=== PATIENT | male | born 1930 | race Caucasian/White ===

== ENCOUNTER 2017-09-01 10:38 | Inpatient (IN) ==
[2017-09-01] MEDS ORDERED: ACETAMINOPHEN 325 MG TABLET PO PRN (10:42)
[2017-09-01] MEDS ORDERED: ONDANSETRON 4 MG/2 ML VIAL IV PRN (10:42)
[2017-09-01 12:38] LABS: Basophils % 0.3 % (0.0-0.8); Eosinophils # 0.3 10*3/uL (0.0-0.87); Eosinophils % 4.3 % (0.00-10.9); Hematocrit 36.2 VOL% (42.0-52.0); Hemoglobin 11.5 GM/DL (14.0-18.0); Immature Granulocytes % 0.5 %; Immature Granulocytes Absolute 0.03 #; Lymphocytes # 1.5 10*3/uL (1.4-4.0); Lymphocytes % 22.6 % (21.2-54.2); Mean Corpuscular HGB Conc 31.8 GM/DL (32-36); Mean Corpuscular Hemoglobin 32 PG (27-34); Mean Corpuscular Volume 101.7 FL (87-102); Mean Platelet Volume 9.9 FL (9.6-12.0); Monocytes # 0.8 10*3/uL (0.11-0.8); Monocytes % 12.7 % (1.7-12.7); Neutrophils # 3.9 10*3/uL (1.4-7.4); Neutrophils % 59.6 % (38.7-73.9); Platelet Count 177 T/CUMM (130-400); Red Blood Count 3.56 MC/CUMM (3.8-5.5); Red Cell Distribution Width 14.7 % (9.3-17.3); White Blood Count 6.5 T/CUMM (4-12)
[2017-09-01] MEDS: ASPIRIN EC 81 MG TABLET PO SCH (12:51)
[2017-09-01 13:01] LABS: Calcium 8.3 MG/DL (8.5-10.1); Magnesium 2.1 MG/DL (1.8-2.4); Risk Ratio 2.88; VLDL CHOLESTEROL 19.8 MG/DL
[2017-09-01] MEDS: SODIUM CHLORIDE 0.45% 1,000 ML IV SCH (13:27)
[2017-09-01] MEDS ORDERED: GLUCAGON 1 MG VIAL IM PRN (13:28)
[2017-09-01] MEDS ORDERED: DEXTROSE 50% 25 GM/50 ML VIAL IV PRN (13:28)
[2017-09-01] MEDS ORDERED: POTASSIUM CHLORIDE RIDER 10 MEQ in PREMIX 1 EACH IV PRN (14:40)
[2017-09-01] MEDS ORDERED: MAGNESIUM SULF RIDER 2 GM in PREMIX 1 EACH IV PRN (14:40)
[2017-09-01] MEDS: ZALEPLON 5 MG CAPSULE PO PRN (21:55)
[2017-09-01] MEDS: DOCUSATE SODIUM 100 MG CAPSULE PO SCH (21:55)
[2017-09-02] MEDS: SODIUM CHLORIDE 0.45% 1,000 ML IV SCH ×2 (02:31→15:40)
[2017-09-02 04:42] LABS: Basophils % 0.3 % (0.0-0.8); Eosinophils # 0.3 10*3/uL (0.0-0.87); Eosinophils % 4.3 % (0.00-10.9); Hematocrit 33.2 VOL% (42.0-52.0); Hemoglobin 11.1 GM/DL (14.0-18.0); Immature Granulocytes % 0.3 %; Immature Granulocytes Absolute 0.02 #; Lymphocytes # 1.6 10*3/uL (1.4-4.0); Mean Corpuscular HGB Conc 33.4 GM/DL (32-36); Mean Corpuscular Hemoglobin 33 PG (27-34); Mean Corpuscular Volume 98.2 FL (87-102); Mean Platelet Volume 10.4 FL (9.6-12.0); Monocytes # 0.8 10*3/uL (0.11-0.8); Monocytes % 11.2 % (1.7-12.7); Neutrophils # 4.1 10*3/uL (1.4-7.4); Neutrophils % 59.9 % (38.7-73.9); Platelet Count 169 T/CUMM (130-400); Red Blood Count 3.38 MC/CUMM (3.8-5.5); Red Cell Distribution Width 14.6 % (9.3-17.3); White Blood Count 6.8 T/CUMM (4-12)
[2017-09-02 04:53] LABS: PT Patient Result 10.5 SECS
[2017-09-02 05:17] LABS: Calcium 8.5 MG/DL (8.5-10.1); Magnesium 1.9 MG/DL (1.8-2.4); Osmolality,Calculated 285.1 MOS/KG (273-304); Potassium 4.7 MMOL/L (3.5-5.1)
[2017-09-02] MEDS ORDERED: DIAZEPAM 5 MG TABLET PO ONE (07:00)
[2017-09-02] MEDS ORDERED: diphenhydrAMINE CAP 25 MG CAPSULE PO ONE (07:00)
[2017-09-02] MEDS: PANTOPRAZOLE 40 MG TABLET PO SCH (07:59)
[2017-09-02] MEDS: ASPIRIN EC 81 MG TABLET PO SCH (07:59)
[2017-09-02] MEDS: DOCUSATE SODIUM 100 MG CAPSULE PO SCH ×2 (08:03→21:18)
[2017-09-02] MEDS ORDERED: hydrOXYzine HCL 25 MG TABLET PO PRN (08:15)
[2017-09-02] MEDS ORDERED: traMADol 50 MG TABLET PO PRN (08:15)
[2017-09-02] MEDS ORDERED: MIDAZOLAM 2 MG/2 ML VIAL ONE (08:15)
[2017-09-02] MEDS ORDERED: ALBUTEROL 2.5 MG/3 ML NEB RESP TX PRN (08:15)
[2017-09-02] MEDS ORDERED: fentaNYL 100 MCG/2 ML VIAL ONE (08:15)
[2017-09-02] MEDS ORDERED: LIDOCAINE 1% 20 ML VIAL ONE (08:15)
[2017-09-02] MEDS ORDERED: FLUTICASONE 50 MCG NASAL SPRAY 16 GM BOTTLE BOTH NARES PRN (08:15)
[2017-09-02] MEDS ORDERED: CYANOCOBALAMIN 1000 MCG/1 ML VIAL IM SCH (08:30)
[2017-09-02] MEDS: FOLIC ACID 0.4 MG TABLET PO SCH (08:57)
[2017-09-02] MEDS: GABAPENTIN 600 MG TABLET PO SCH (08:57)
[2017-09-02] MEDS: GLUCOSAMINE 500 MG TABLET PO SCH (08:57)
[2017-09-02] MEDS: MULTIVITAMIN (OCUVITE) TABLET PO SCH (08:58)
[2017-09-02] MEDS: LEVOTHYROXINE 175 MCG TABLET PO SCH (08:58)
[2017-09-02] MEDS: MONTELUKAST 10 MG TABLET PO SCH (08:58)
[2017-09-02] MEDS ORDERED: ALPHA LIPOIC ACID 600 MG PO SCH (09:00)
[2017-09-02] MEDS ORDERED: CYANOCOBALAMIN 6000 MCG PO SCH (09:00)
[2017-09-02] MEDS ORDERED: NON-FORMULARY MEDICATION (Liraglutide [Victoza 3-Pak] 1.2 MG) SQ SCH (09:00)
[2017-09-02] MEDS: IPRATROPIUM 500 MCG/2.5 ML NEB RESP TX SCH ×3 (10:28→20:54)
[2017-09-02] MEDS: FORMOTEROL 20 MCG/2 ML NEB RESP TX SCH ×2 (10:28→20:54)
[2017-09-02] MEDS: POLYVINYL ALCOHOL 1.4% OPH SOLN 15 ML BOTTLE BOTH EYES SCH (10:54)
[2017-09-02] MEDS: INSULIN REGULAR 100 UNIT/ML SUBCUT SCH ×3 (12:38→21:36)
[2017-09-02] MEDS ORDERED: SIMVASTATIN 20 MG TABLET PO SCH (21:00)
[2017-09-02] MEDS ORDERED: GABAPENTIN 300 MG CAPSULE PO SCH (21:00)
[2017-09-02] MEDS ORDERED: MELATONIN 3 MG TABLET PO SCH (21:00)
[2017-09-02] MEDS ORDERED: TEMAZEPAM 7.5 MG CAPSULE PO SCH (21:00)
[2017-09-02] MEDS: ZALEPLON 5 MG CAPSULE PO PRN (21:17)
[2017-09-03 06:06] LABS: Basophils % 0.3 % (0.0-0.8); Eosinophils # 0.3 10*3/uL (0.0-0.87); Eosinophils % 4.6 % (0.00-10.9); Hematocrit 34.7 VOL% (42.0-52.0); Hemoglobin 11.3 GM/DL (14.0-18.0); Immature Granulocytes % 0.4 %; Immature Granulocytes Absolute 0.03 #; Lymphocytes # 1.3 10*3/uL (1.4-4.0); Lymphocytes % 17.2 % (21.2-54.2); Mean Corpuscular HGB Conc 32.6 GM/DL (32-36); Mean Corpuscular Hemoglobin 33 PG (27-34); Mean Platelet Volume 9.7 FL (9.6-12.0); Monocytes % 13.2 % (1.7-12.7); Neutrophils # 4.7 10*3/uL (1.4-7.4); Neutrophils % 64.3 % (38.7-73.9); Platelet Count 159 T/CUMM (130-400); Red Blood Count 3.47 MC/CUMM (3.8-5.5); Red Cell Distribution Width 14.4 % (9.3-17.3); White Blood Count 7.3 T/CUMM (4-12)
[2017-09-03 06:36] LABS: Calcium 8.7 MG/DL (8.5-10.1); Osmolality,Calculated 284.3 MOS/KG (273-304); Potassium 4.4 MMOL/L (3.5-5.1)
[2017-09-03] MEDS: IPRATROPIUM 500 MCG/2.5 ML NEB RESP TX SCH ×2 (07:34→10:56)
[2017-09-03] MEDS: FORMOTEROL 20 MCG/2 ML NEB RESP TX SCH (07:34)
[2017-09-03] MEDS: POLYVINYL ALCOHOL 1.4% OPH SOLN 15 ML BOTTLE BOTH EYES SCH (08:41)
[2017-09-03] MEDS: MULTIVITAMIN (OCUVITE) TABLET PO SCH (08:41)
[2017-09-03] MEDS: PANTOPRAZOLE 40 MG TABLET PO SCH (08:41)
[2017-09-03] MEDS: GABAPENTIN 600 MG TABLET PO SCH (08:41)
[2017-09-03] MEDS: INSULIN REGULAR 100 UNIT/ML SUBCUT SCH (08:41)
[2017-09-03] MEDS: GLUCOSAMINE 500 MG TABLET PO SCH (08:42)
[2017-09-03] MEDS: LEVOTHYROXINE 175 MCG TABLET PO SCH (08:42)
[2017-09-03] MEDS: DOCUSATE SODIUM 100 MG CAPSULE PO SCH (08:42)
[2017-09-03] MEDS: MONTELUKAST 10 MG TABLET PO SCH (08:42)
[2017-09-03] MEDS: FOLIC ACID 0.4 MG TABLET PO SCH (08:42)
[2017-09-03] MEDS: ASPIRIN EC 81 MG TABLET PO SCH (08:42)
[2017-09-03 08:45] VITALS: BP 141/81
[2017-09-03] MEDS ORDERED: NITROGLYCERIN SL 0.4 MG TABLET SL PRN (09:04)
== END 2017-09-03 11:57 | disposition home or self-care (01) | DRG 287 ==
LOC: N.TELES 11:12
PROVIDERS: ADMIT Internal Medicine Cardiovascular Disease; ATTEND Internal Medicine Cardiovascular Disease

== ENCOUNTER 2018-09-09 18:00 | Inpatient (IN) ==
[2018-09-09 19:41] LABS: Basophils % 0.4 % (0.0-0.8); Eosinophils # 0.1 10*3/uL (0.0-0.87); Eosinophils % 2.1 % (0.00-10.9); Hematocrit 37.4 VOL% (42.0-52.0); Hemoglobin 12.3 GM/DL (14.0-18.0); Immature Granulocytes % 0.5 %; Immature Granulocytes Absolute 0.03 #; Lymphocytes # 1.2 10*3/uL (1.4-4.0); Lymphocytes % 21.4 % (21.2-54.2); Mean Corpuscular HGB Conc 32.9 GM/DL (32-36); Mean Corpuscular Hemoglobin 34 PG (27-34); Mean Corpuscular Volume 103.3 FL (87-102); Mean Platelet Volume 9.7 FL (9.6-12.0); Monocytes # 0.7 10*3/uL (0.11-0.8); Monocytes % 12.5 % (1.7-12.7); Neutrophils # 3.6 10*3/uL (1.4-7.4); Neutrophils % 63.1 % (38.7-73.9); Platelet Count 191 T/CUMM (130-400); Red Blood Count 3.62 MC/CUMM (3.8-5.5); Red Cell Distribution Width 13.3 % (9.3-17.3); White Blood Count 5.7 T/CUMM (4-12)
[2018-09-09 19:59] LABS: Alanine Aminotransferase 12 U/L (16-61); Albumin 3.1 G/DL (3.4-5.0); Alkaline Phosphatase 97 U/L (45-117); Aspartate Amino Transferase 14 U/L (0-37); Bilirubin,Total < 0.39 MG/DL (0.2-1.0); Blood Urea Nitrogen 28 MG/DL (7-18); Glucose 97 MG/DL (74-106); Osmolality,Calculated 282.5 MOS/KG (273-304); Potassium 4.6 MMOL/L (3.5-5.1); Sodium 139 MMOL/L (136-145); Total Protein 6.7 G/DL (6.4-8.3)
[2018-09-09 20:55] LABS: Apearance,Urine CLEAR (Clear); Bilirubin,Urine Negative (Negative); Blood, Urine Negative (Negative); Glucose,Urine (UA) Negative (Negative); Hyaline Casts,Urine 1 /LPF (0-3); Ketones,Urine Negative (Negative); Mucus,Urine Occasional /LPF (Occasional); Nitrite,Urine Negative (Negative); Protein,Urine Negative; RBC,Urine <1 /HPF (0-4); Urine Color Yellow (Yellow); Urine Specific Gravity 1.011 (1.001-1.035); WBC,Urine 1 /HPF (0-6)
[2018-09-10] MEDS ORDERED: traMADol 50 MG TABLET PO PRN (07:30)
[2018-09-10] MEDS ORDERED: NITROGLYCERIN SL 0.4 MG TABLET SL PRN (07:30)
[2018-09-10] MEDS ORDERED: hydrOXYzine HCL 25 MG TABLET PO PRN (07:30)
[2018-09-10] MEDS ORDERED: TEMAZEPAM 7.5 MG CAPSULE PO PRN (07:30)
[2018-09-10] MEDS ORDERED: FLUTICASONE 50 MCG NASAL SPRAY 16 GM BOTTLE BOTH NARES PRN (07:30)
[2018-09-10] MEDS: RANOLAZINE 500 MG TABLET PO SCH ×2 (08:48→22:21)
[2018-09-10] MEDS: FUROSEMIDE 20 MG TABLET PO SCH (08:48)
[2018-09-10] MEDS: MONTELUKAST 10 MG TABLET PO SCH (08:48)
[2018-09-10] MEDS: MULTIVITAMIN (OCUVITE) TABLET PO SCH (08:48)
[2018-09-10] MEDS: LEVOTHYROXINE 175 MCG TABLET PO SCH (08:48)
[2018-09-10] MEDS: GABAPENTIN 300 MG CAPSULE PO SCH ×3 (08:48→22:21)
[2018-09-10] MEDS: ISOSORBIDE MONONITRATE 30 MG TABLET PO SCH (08:48)
[2018-09-10] MEDS ORDERED: CYANOCOBALAMIN 6000 MCG PO SCH (09:00)
[2018-09-10] MEDS ORDERED: [UNRECOGNIZED DRUG - OTHER] PO SCH (09:00)
[2018-09-10] MEDS ORDERED: MANG PO SCH (09:00)
[2018-09-10] MEDS ORDERED: CHONDROITIN PO SCH (09:00)
[2018-09-10] MEDS ORDERED: GLUCOSAMINE PO SCH (09:00)
[2018-09-10] MEDS ORDERED: Formoterol Fumarate [Perforomist] 20 MCG INH SCH (09:00)
[2018-09-10] MEDS ORDERED: ASPIRIN EC 325 MG TABLET PO SCH (09:00)
[2018-09-10] MEDS: IPRATROPIUM 500 MCG/2.5 ML NEB RESP TX SCH ×4 (09:23→19:46)
[2018-09-10] MEDS ORDERED: Alpha Lipoic Acid [Alpha Lipoic Acid] 600 MG PO SCH (21:00)
[2018-09-10] MEDS ORDERED: FOLIC ACID 0.4 MG TABLET PO SCH (21:00)
[2018-09-10] MEDS ORDERED: SIMVASTATIN 20 MG TABLET PO SCH (21:00)
[2018-09-11 05:28] LABS: Basophils % 0.3 % (0.0-0.8); Eosinophils # 0.2 10*3/uL (0.0-0.87); Eosinophils % 3.3 % (0.00-10.9); Hemoglobin 11.3 GM/DL (14.0-18.0); Immature Granulocytes % 0.3 %; Immature Granulocytes Absolute 0.02 #; Lymphocytes # 1.8 10*3/uL (1.4-4.0); Lymphocytes % 29.7 % (21.2-54.2); Mean Corpuscular HGB Conc 32.3 GM/DL (32-36); Mean Corpuscular Hemoglobin 34 PG (27-34); Mean Corpuscular Volume 103.9 FL (87-102); Mean Platelet Volume 9.7 FL (9.6-12.0); Monocytes # 0.8 10*3/uL (0.11-0.8); Monocytes % 13.6 % (1.7-12.7); Neutrophils # 3.2 10*3/uL (1.4-7.4); Neutrophils % 52.8 % (38.7-73.9); Platelet Count 166 T/CUMM (130-400); Red Blood Count 3.37 MC/CUMM (3.8-5.5); Red Cell Distribution Width 13.4 % (9.3-17.3); White Blood Count 6.1 T/CUMM (4-12)
[2018-09-11] MEDS ORDERED: CYANOCOBALAMIN 1000 MCG/1 ML VIAL IM SCH (05:30)
[2018-09-11 05:45] LABS: Calcium 8.7 MG/DL (8.5-10.1); Osmolality,Calculated 284.3 MOS/KG (273-304); Potassium 4.3 MMOL/L (3.5-5.1)
[2018-09-11] MEDS: IPRATROPIUM 500 MCG/2.5 ML NEB RESP TX SCH (07:50)
[2018-09-11 07:52] VITALS: BP 118/60
[2018-09-11] MEDS: MONTELUKAST 10 MG TABLET PO SCH (08:45)
[2018-09-11] MEDS: ISOSORBIDE MONONITRATE 30 MG TABLET PO SCH (08:46)
[2018-09-11] MEDS: MULTIVITAMIN (OCUVITE) TABLET PO SCH (08:46)
[2018-09-11] MEDS: FUROSEMIDE 20 MG TABLET PO SCH (08:46)
[2018-09-11] MEDS: RANOLAZINE 500 MG TABLET PO SCH (08:46)
[2018-09-11] MEDS: LEVOTHYROXINE 175 MCG TABLET PO SCH (08:46)
[2018-09-11] MEDS: GABAPENTIN 300 MG CAPSULE PO SCH (08:46)
[2018-09-11] MEDS ORDERED: ASPIRIN EC 81 MG TABLET PO SCH (09:00)
[2018-09-11] MEDS ORDERED: IPRATROPIUM 500 MCG/2.5 ML NEB RESP TX SCH (11:00)
== END 2018-09-11 11:25 | disposition home or self-care (01) | DRG 312 ==
LOC: N.ED 18:00 → N.EDINP 20:22 → N.TELES 21:14
PROVIDERS: ADMIT Family Medicine; ATTEND Family Medicine

== ENCOUNTER 2018-09-15 08:58 | Inpatient (IN) ==
[2018-09-15] MEDS ORDERED: ASPIRIN 325 MG TABLET PO STA (10:41)
[2018-09-15] MEDS ORDERED: SODIUM CHLORIDE 0.9% 500 ML IV STA (10:41)
[2018-09-15] MEDS ORDERED: ONDANSETRON 4 MG/2 ML VIAL IV STA (10:41)
[2018-09-15 10:46] LABS: Basophils % 0.1 % (0.0-0.8); Eosinophils # 0.1 10*3/uL (0.0-0.87); Eosinophils % 0.7 % (0.00-10.9); Hematocrit 38.7 VOL% (42.0-52.0); Hemoglobin 12.5 GM/DL (14.0-18.0); Immature Granulocytes % 0.5 %; Immature Granulocytes Absolute 0.07 #; Lymphocytes # 0.9 10*3/uL (1.4-4.0); Lymphocytes % 6.5 % (21.2-54.2); Mean Corpuscular HGB Conc 32.3 GM/DL (32-36); Mean Corpuscular Hemoglobin 34 PG (27-34); Mean Platelet Volume 9.4 FL (9.6-12.0); Monocytes # 1.5 10*3/uL (0.11-0.8); Monocytes % 11.3 % (1.7-12.7); Neutrophils # 10.8 10*3/uL (1.4-7.4); Neutrophils % 80.9 % (38.7-73.9); Platelet Count 171 T/CUMM (130-400); Red Blood Count 3.72 MC/CUMM (3.8-5.5); Red Cell Distribution Width 13.2 % (9.3-17.3); White Blood Count 13.4 T/CUMM (4-12)
[2018-09-15 11:08] LABS: Albumin 3.3 G/DL (3.4-5.0); Bilirubin,Total 0.7 MG/DL (0.2-1.0); Calcium 9.4 MG/DL (8.5-10.1); Osmolality,Calculated 284.4 MOS/KG (273-304); Potassium 4.8 MMOL/L (3.5-5.1); Total Protein 6.4 G/DL (6.4-8.3)
[2018-09-15] MEDS ORDERED: ACETAMINOPHEN 325 MG TABLET PO PRN (12:11)
[2018-09-15] MEDS ORDERED: ONDANSETRON 4 MG/2 ML VIAL IV PRN (12:11)
[2018-09-15] MEDS ORDERED: hydrOXYzine HCL 25 MG TABLET PO PRN (13:06)
[2018-09-15] MEDS ORDERED: [UNRECOGNIZED DRUG - REMARK] INH PRN (13:06)
[2018-09-15] MEDS ORDERED: NITROGLYCERIN SL 0.4 MG TABLET SL PRN (13:06)
[2018-09-15] MEDS ORDERED: traMADol 50 MG TABLET PO PRN (13:06)
[2018-09-15] MEDS: GABAPENTIN 300 MG CAPSULE PO SCH ×2 (16:22→22:41)
[2018-09-15] MEDS ORDERED: GLUCAGON 1 MG VIAL IM PRN (17:10)
[2018-09-15] MEDS ORDERED: DEXTROSE 50% 25 GM/50 ML SYRINGE IV PRN (17:10)
[2018-09-15] MEDS: cefTRIAXone 1,000 MG in SYRINGE 1 EACH IV SCH (18:47)
[2018-09-15] MEDS: AZITHROMYCIN INJ 500 MG in SODIUM CHLORIDE 0.9% 250 ML IV SCH (18:49)
[2018-09-15] MEDS: FORMOTEROL 20 MCG/2 ML NEB RESP TX SCH (19:50)
[2018-09-15] MEDS ORDERED: ALPHA LIPOIC ACID 600 MG PO SCH (21:00)
[2018-09-15] MEDS ORDERED: RANOLAZINE 500 MG TABLET PO SCH (21:00)
[2018-09-15] MEDS: RANOLAZINE 500 MG TABLET PO SCH (22:40)
[2018-09-15] MEDS: FOLIC ACID 0.4 MG TABLET PO SCH (22:40)
[2018-09-15] MEDS: SIMVASTATIN 20 MG TABLET PO SCH (22:41)
[2018-09-15] MEDS: INSULIN LISPRO 100 UNIT/ML SUBCUT SCH (22:41)
[2018-09-15] MEDS: DOCUSATE SODIUM 100 MG CAPSULE PO SCH (22:41)
[2018-09-15] MEDS: TEMAZEPAM 7.5 MG CAPSULE PO PRN (22:44)
[2018-09-16] MEDS: IPRATROPIUM 500 MCG/2.5 ML NEB RESP TX SCH ×4 (07:01→20:00)
[2018-09-16] MEDS: FORMOTEROL 20 MCG/2 ML NEB RESP TX SCH ×2 (07:01→20:00)
[2018-09-16] MEDS ORDERED: CYANOCOBALAMIN 6000 MCG PO SCH (09:00)
[2018-09-16] MEDS ORDERED: CRAMP DEFENSE PO SCH (09:00)
[2018-09-16] MEDS: INSULIN LISPRO 100 UNIT/ML SUBCUT SCH ×4 (09:18→21:49)
[2018-09-16] MEDS: RANOLAZINE 500 MG TABLET PO SCH ×2 (09:19→21:48)
[2018-09-16] MEDS: MULTIVITAMIN (OCUVITE) TABLET PO SCH (09:19)
[2018-09-16] MEDS: ISOSORBIDE MONONITRATE 30 MG TABLET PO SCH (09:20)
[2018-09-16] MEDS: DOCUSATE SODIUM 100 MG CAPSULE PO SCH ×2 (09:20→21:48)
[2018-09-16] MEDS: MONTELUKAST 10 MG TABLET PO SCH (09:20)
[2018-09-16] MEDS: ASPIRIN EC 81 MG TABLET PO SCH (09:20)
[2018-09-16] MEDS: PANTOPRAZOLE 40 MG TABLET PO SCH (09:20)
[2018-09-16] MEDS: GABAPENTIN 300 MG CAPSULE PO SCH ×3 (09:20→21:49)
[2018-09-16] MEDS: LEVOTHYROXINE 175 MCG TABLET PO SCH (09:21)
[2018-09-16] MEDS: GLUCOSAMINE 500 MG TABLET PO SCH (09:21)
[2018-09-16] MEDS ORDERED: FUROSEMIDE 20 MG TABLET PO SCH (13:06)
[2018-09-16] MEDS: AZITHROMYCIN INJ 500 MG in SODIUM CHLORIDE 0.9% 250 ML IV SCH (17:27)
[2018-09-16] MEDS: cefTRIAXone 1,000 MG in SYRINGE 1 EACH IV SCH (17:28)
[2018-09-16] MEDS: TEMAZEPAM 7.5 MG CAPSULE PO PRN (21:49)
[2018-09-16] MEDS: FOLIC ACID 0.4 MG TABLET PO SCH (21:49)
[2018-09-16] MEDS: SIMVASTATIN 20 MG TABLET PO SCH (21:49)
[2018-09-17 05:53] LABS: Basophils % 0.1 % (0.0-0.8); Eosinophils # 0.2 10*3/uL (0.0-0.87); Eosinophils % 3.1 % (0.00-10.9); Hematocrit 29.6 VOL% (42.0-52.0); Immature Granulocytes % 0.4 %; Immature Granulocytes Absolute 0.03 #; Lymphocytes # 1.3 10*3/uL (1.4-4.0); Lymphocytes % 19.5 % (21.2-54.2); Mean Corpuscular HGB Conc 32.8 GM/DL (32-36); Mean Corpuscular Hemoglobin 34 PG (27-34); Mean Corpuscular Volume 102.8 FL (87-102); Mean Platelet Volume 9.7 FL (9.6-12.0); Monocytes # 0.8 10*3/uL (0.11-0.8); Monocytes % 12.1 % (1.7-12.7); Neutrophils # 4.3 10*3/uL (1.4-7.4); Neutrophils % 64.8 % (38.7-73.9); Platelet Count 138 T/CUMM (130-400); Red Cell Distribution Width 13.2 % (9.3-17.3)
[2018-09-17 05:58] LABS: Calcium 8.7 MG/DL (8.5-10.1); Osmolality,Calculated 283.5 MOS/KG (273-304); Potassium 4.2 MMOL/L (3.5-5.1)
[2018-09-17 06:01] LABS: Hemoglobin 9.7 GM/DL (14.0-18.0); Red Blood Count 2.88 MC/CUMM (3.8-5.5); White Blood Count 6.7 T/CUMM (4-12)
[2018-09-17] MEDS: IPRATROPIUM 500 MCG/2.5 ML NEB RESP TX SCH ×4 (07:15→19:42)
[2018-09-17] MEDS: FORMOTEROL 20 MCG/2 ML NEB RESP TX SCH ×2 (07:15→19:50)
[2018-09-17] MEDS: INSULIN LISPRO 100 UNIT/ML SUBCUT SCH ×4 (08:25→21:00)
[2018-09-17] MEDS: LEVOTHYROXINE 175 MCG TABLET PO SCH (10:03)
[2018-09-17] MEDS: RANOLAZINE 500 MG TABLET PO SCH ×2 (10:03→20:33)
[2018-09-17] MEDS: MONTELUKAST 10 MG TABLET PO SCH (10:03)
[2018-09-17] MEDS: ASPIRIN EC 81 MG TABLET PO SCH (10:03)
[2018-09-17] MEDS: GABAPENTIN 300 MG CAPSULE PO SCH ×3 (10:03→20:33)
[2018-09-17] MEDS: MULTIVITAMIN (OCUVITE) TABLET PO SCH (10:03)
[2018-09-17] MEDS: PANTOPRAZOLE 40 MG TABLET PO SCH (10:04)
[2018-09-17] MEDS: GLUCOSAMINE 500 MG TABLET PO SCH (10:04)
[2018-09-17] MEDS: ISOSORBIDE MONONITRATE 30 MG TABLET PO SCH (10:04)
[2018-09-17] MEDS: DOCUSATE SODIUM 100 MG CAPSULE PO SCH ×2 (10:04→20:33)
[2018-09-17] MEDS: AZITHROMYCIN INJ 500 MG in SODIUM CHLORIDE 0.9% 250 ML IV SCH (16:52)
[2018-09-17] MEDS: cefTRIAXone 1,000 MG in SYRINGE 1 EACH IV SCH (16:53)
[2018-09-17] MEDS: FOLIC ACID 0.4 MG TABLET PO SCH (20:33)
[2018-09-17] MEDS: TEMAZEPAM 7.5 MG CAPSULE PO PRN (20:33)
[2018-09-17] MEDS: SIMVASTATIN 20 MG TABLET PO SCH (20:34)
[2018-09-18 04:37] LABS: Basophils % 0.2 % (0.0-0.8); Eosinophils # 0.2 10*3/uL (0.0-0.87); Eosinophils % 3.6 % (0.00-10.9); Hematocrit 31.6 VOL% (42.0-52.0); Hemoglobin 10.2 GM/DL (14.0-18.0); Immature Granulocytes % 0.3 %; Immature Granulocytes Absolute 0.02 #; Lymphocytes # 1.5 10*3/uL (1.4-4.0); Lymphocytes % 23.4 % (21.2-54.2); Mean Corpuscular HGB Conc 32.3 GM/DL (32-36); Mean Corpuscular Hemoglobin 33 PG (27-34); Mean Corpuscular Volume 103.3 FL (87-102); Mean Platelet Volume 9.7 FL (9.6-12.0); Monocytes # 0.7 10*3/uL (0.11-0.8); Monocytes % 11.3 % (1.7-12.7); Neutrophils # 3.9 10*3/uL (1.4-7.4); Neutrophils % 61.2 % (38.7-73.9); Platelet Count 139 T/CUMM (130-400); Red Blood Count 3.06 MC/CUMM (3.8-5.5); Red Cell Distribution Width 13.2 % (9.3-17.3); White Blood Count 6.4 T/CUMM (4-12)
[2018-09-18 04:50] LABS: Calcium 8.6 MG/DL (8.5-10.1); Osmolality,Calculated 281.5 MOS/KG (273-304); Potassium 4.5 MMOL/L (3.5-5.1)
[2018-09-18] MEDS: IPRATROPIUM 500 MCG/2.5 ML NEB RESP TX SCH (07:05)
[2018-09-18] MEDS: FORMOTEROL 20 MCG/2 ML NEB RESP TX SCH (07:05)
[2018-09-18 08:10] VITALS: BP 130/54
[2018-09-18] MEDS: INSULIN LISPRO 100 UNIT/ML SUBCUT SCH (09:06)
[2018-09-18] MEDS: GLUCOSAMINE 500 MG TABLET PO SCH (09:15)
[2018-09-18] MEDS: MONTELUKAST 10 MG TABLET PO SCH (09:15)
[2018-09-18] MEDS: DOCUSATE SODIUM 100 MG CAPSULE PO SCH (09:15)
[2018-09-18] MEDS: ISOSORBIDE MONONITRATE 30 MG TABLET PO SCH (09:16)
[2018-09-18] MEDS: MULTIVITAMIN (OCUVITE) TABLET PO SCH (09:16)
[2018-09-18] MEDS: LEVOTHYROXINE 175 MCG TABLET PO SCH (09:16)
[2018-09-18] MEDS: ASPIRIN EC 81 MG TABLET PO SCH (09:16)
[2018-09-18] MEDS: RANOLAZINE 500 MG TABLET PO SCH (09:16)
[2018-09-18] MEDS: PANTOPRAZOLE 40 MG TABLET PO SCH (09:16)
[2018-09-18] MEDS: GABAPENTIN 300 MG CAPSULE PO SCH (09:16)
[2018-09-21] MEDS ORDERED: NON-FORMULARY MEDICATION (Exenatide Microspheres [Bydureon Pen] 2 MG) SUBCUT SCH (09:00)
== END 2018-09-18 11:40 | disposition home or self-care (01) | DRG 195 ==
LOC: N.EDINP 08:58 → N.ED 08:58 → N.TELES 12:51
PROVIDERS: ADMIT Family Medicine; ATTEND Family Medicine

== ENCOUNTER 2020-01-17 17:50 | Inpatient (IN) ==
[2020-01-17] MEDS ORDERED: PANTOPRAZOLE 40 MG VIAL IV STA (18:29)
[2020-01-17] MEDS ORDERED: ONDANSETRON 4 MG/2 ML VIAL IV STA (18:29)
[2020-01-17] MEDS ORDERED: MORPHINE 4 MG/1 ML VIAL IV STA ×2 (18:29→20:19)
[2020-01-17] MEDS ORDERED: SODIUM CHLORIDE 0.9% 500 ML IV STA (18:29)
[2020-01-17 19:04] LABS: Basophils % 0.3 % (0.0-0.8); Eosinophils # 0.2 10*3/uL (0.0-0.87); Eosinophils % 2.4 % (0.00-10.9); Hematocrit 38.6 VOL% (42.0-52.0); Hemoglobin 12.7 GM/DL (14.0-18.0); Immature Granulocytes % 0.5 %; Immature Granulocytes Absolute 0.04 #; Lymphocytes # 2.1 10*3/uL (1.4-4.0); Lymphocytes % 25.9 % (21.2-54.2); Mean Corpuscular HGB Conc 32.9 GM/DL (32-36); Mean Corpuscular Volume 99.5 FL (87-102); Mean Platelet Volume 10.2 FL (9.6-12.0); Monocytes % 9.2 % (1.7-12.7); Neutrophils % 61.7 % (38.7-73.9); Platelet Count 140 T/CUMM (130-400); Red Blood Count 3.88 MC/CUMM (3.8-5.5); Red Cell Distribution Width 13.8 % (9.3-17.3); White Blood Count 7.9 T/CUMM (4-12)
[2020-01-17 20:05] LABS: Albumin 2.9 G/DL (3.4-5.0); Bilirubin,Total 0.5 MG/DL (0.2-1.0); Calcium 9.1 MG/DL (8.5-10.1); Osmolality,Calculated 275.8 MOS/KG (273-304); Total Protein 6.4 G/DL (6.4-8.3)
[2020-01-17] MEDS ORDERED: PIPERACILLIN/TAZOBACTAM 3,375 MG in SODIUM CHLORIDE 0.9% 100 ML IV STA (20:40)
[2020-01-17 20:43] LABS: Apearance,Urine CLEAR (Clear); Bacteria,Urine Occasional /HPF (Few); Bilirubin,Urine Negative (Negative); Blood, Urine Negative (Negative); Glucose,Urine (UA) Negative (Negative); Ketones,Urine Negative (Negative); Nitrite,Urine Negative (Negative); Protein,Urine Negative; RBC,Urine <1 /HPF (0-4); Urine Color Yellow (Yellow); Urine Specific Gravity 1.009 (1.001-1.035); Urine Urobilinogen < 2.0 EU/DL (0.2-1.0); WBC,Urine 1 /HPF (0-6)
[2020-01-18] MEDS ORDERED: NITROGLYCERIN SL 0.4 MG TABLET SL PRN (01:22)
[2020-01-18] MEDS ORDERED: ACETAMINOPHEN 325 MG TABLET PO PRN (01:22)
[2020-01-18] MEDS ORDERED: [UNRECOGNIZED DRUG - REMARK] INH PRN (01:22)
[2020-01-18] MEDS ORDERED: hydrOXYzine HCL 25 MG TABLET PO PRN (01:22)
[2020-01-18] MEDS ORDERED: TEMAZEPAM 7.5 MG CAPSULE PO PRN (01:22)
[2020-01-18] MEDS: MORPHINE 4 MG/1 ML VIAL IV PRN ×4 (01:50→21:29)
[2020-01-18] MEDS: ONDANSETRON 4 MG/2 ML VIAL IV PRN ×3 (01:56→21:28)
[2020-01-18] MEDS ORDERED: EXENATIDE MICROSPHERES 2 MG SUBCUT SCH (02:00)
[2020-01-18] MEDS: SODIUM CHLORIDE 0.9% 1,000 ML IV SCH (03:20)
[2020-01-18] MEDS: PIPERACILLIN/TAZOBACTAM 3,375 MG in SODIUM CHLORIDE 0.9% 100 ML IV SCH ×3 (05:23→21:28)
[2020-01-18 05:34] LABS: Basophils % 0.1 % (0.0-0.8); Eosinophils # 0.1 10*3/uL (0.0-0.87); Eosinophils % 0.5 % (0.00-10.9); Hematocrit 38.1 VOL% (42.0-52.0); Hemoglobin 12.4 GM/DL (14.0-18.0); Immature Granulocytes % 0.2 %; Immature Granulocytes Absolute 0.02 #; Lymphocytes # 0.7 10*3/uL (1.4-4.0); Lymphocytes % 6.7 % (21.2-54.2); Mean Corpuscular HGB Conc 32.5 GM/DL (32-36); Mean Corpuscular Volume 101.3 FL (87-102); Mean Platelet Volume 9.5 FL (9.6-12.0); Monocytes % 8.1 % (1.7-12.7); Neutrophils % 84.4 % (38.7-73.9); Platelet Count 175 T/CUMM (130-400); Red Blood Count 3.76 MC/CUMM (3.8-5.5); Red Cell Distribution Width 13.9 % (9.3-17.3); White Blood Count 10.5 T/CUMM (4-12)
[2020-01-18] MEDS: LEVOTHYROXINE 150 MCG TABLET PO SCH (05:38)
[2020-01-18 07:41] LABS: Bilirubin,Total 0.7 MG/DL (0.2-1.0); Calcium 9.2 MG/DL (8.5-10.1); Total Protein 6.8 G/DL (6.4-8.3)
[2020-01-18 07:50] LABS: Osmolality,Calculated 279.7 MOS/KG (273-304)
[2020-01-18] MEDS: ASPIRIN EC 325 MG TABLET PO SCH (09:53)
[2020-01-18] MEDS: GLUCOSAM SU DIP CHONDROIT C MN PO SCH (09:54)
[2020-01-18] MEDS: GABAPENTIN 300 MG CAPSULE PO SCH ×3 (09:54→21:30)
[2020-01-18] MEDS: ISOSORBIDE MONONITRATE 30 MG TABLET PO SCH (09:54)
[2020-01-18] MEDS: CYANOCOBALAMIN 6000 MCG PO SCH (09:54)
[2020-01-18] MEDS: MONTELUKAST 10 MG TABLET PO SCH (09:55)
[2020-01-18] MEDS: PANTOPRAZOLE 40 MG VIAL IV SCH (10:02)
[2020-01-18] MEDS: TIOTROPIUM BROMIDE 18 MCG INH SCH (10:04)
[2020-01-18 10:17] LABS: Calcium 9.1 MG/DL (8.5-10.1); Osmolality,Calculated 275.1 MOS/KG (273-304)
[2020-01-18] MEDS: FOLIC ACID 0.4 MG TABLET PO SCH (21:30)
[2020-01-18] MEDS: SIMVASTATIN 20 MG TABLET PO SCH (21:30)
[2020-01-18] MEDS: ALPHA LIPOIC ACID 600 MG PO SCH (21:30)
[2020-01-19] MEDS: SODIUM CHLORIDE 0.9% 1,000 ML IV SCH ×3 (03:02→12:25)
[2020-01-19 05:44] LABS: Basophils % 0.2 % (0.0-0.8); Eosinophils # 0.1 10*3/uL (0.0-0.87); Eosinophils % 1.1 % (0.00-10.9); Hematocrit 42.2 VOL% (42.0-52.0); Hemoglobin 13.2 GM/DL (14.0-18.0); Immature Granulocytes % 0.4 %; Immature Granulocytes Absolute 0.04 #; Lymphocytes # 1.3 10*3/uL (1.4-4.0); Lymphocytes % 13.2 % (21.2-54.2); Mean Corpuscular HGB Conc 31.3 GM/DL (32-36); Mean Corpuscular Volume 105.5 FL (87-102); Mean Platelet Volume 9.3 FL (9.6-12.0); Monocytes % 10.5 % (1.7-12.7); Neutrophils % 74.6 % (38.7-73.9); Platelet Count 191 T/CUMM (130-400); Red Cell Distribution Width 14.2 % (9.3-17.3); White Blood Count 10.1 T/CUMM (4-12)
[2020-01-19 05:56] LABS: Calcium 9.5 MG/DL (8.5-10.1); Osmolality,Calculated 289.3 MOS/KG (273-304)
[2020-01-19] MEDS: PIPERACILLIN/TAZOBACTAM 3,375 MG in SODIUM CHLORIDE 0.9% 100 ML IV SCH ×3 (05:58→20:34)
[2020-01-19] MEDS: LEVOTHYROXINE 150 MCG TABLET PO SCH (05:58)
[2020-01-19] MEDS ORDERED: LACTATED RINGERS 1,000 ML IV ONE (06:39)
[2020-01-19] MEDS: ASPIRIN EC 325 MG TABLET PO SCH (09:54)
[2020-01-19] MEDS: MONTELUKAST 10 MG TABLET PO SCH (09:55)
[2020-01-19] MEDS: GABAPENTIN 300 MG CAPSULE PO SCH ×3 (09:55→20:37)
[2020-01-19] MEDS: GLUCOSAM SU DIP CHONDROIT C MN PO SCH (09:55)
[2020-01-19] MEDS: ISOSORBIDE MONONITRATE 30 MG TABLET PO SCH (09:55)
[2020-01-19] MEDS: CYANOCOBALAMIN 6000 MCG PO SCH (09:55)
[2020-01-19] MEDS: TIOTROPIUM BROMIDE 18 MCG INH SCH (11:04)
[2020-01-19] MEDS: LACTATED RINGERS 1,000 ML IV SCH ×2 (11:04→18:34)
[2020-01-19] MEDS: ENOXAPARIN 40 MG/0.4 ML SYRINGE SUBCUT SCH (11:04)
[2020-01-19] MEDS: PANTOPRAZOLE 40 MG VIAL IV SCH (11:04)
[2020-01-19] MEDS: FOLIC ACID 0.4 MG TABLET PO SCH (20:34)
[2020-01-19] MEDS: ALPHA LIPOIC ACID 600 MG PO SCH (20:34)
[2020-01-19] MEDS: SIMVASTATIN 20 MG TABLET PO SCH (20:35)
[2020-01-19] MEDS: MORPHINE 4 MG/1 ML VIAL IV PRN (23:11)
[2020-01-19] MEDS: ONDANSETRON 4 MG/2 ML VIAL IV PRN (23:11)
[2020-01-20] MEDS: LACTATED RINGERS 1,000 ML IV SCH ×3 (03:10→10:08)
[2020-01-20] MEDS: PIPERACILLIN/TAZOBACTAM 3,375 MG in SODIUM CHLORIDE 0.9% 100 ML IV SCH (05:56)
[2020-01-20] MEDS: LEVOTHYROXINE 150 MCG TABLET PO SCH (05:56)
[2020-01-20 06:50] LABS: Calcium 9.1 MG/DL (8.5-10.1)
[2020-01-20] MEDS: ENOXAPARIN 40 MG/0.4 ML SYRINGE SUBCUT SCH (10:05)
[2020-01-20] MEDS: ISOSORBIDE MONONITRATE 30 MG TABLET PO SCH (10:06)
[2020-01-20] MEDS: MONTELUKAST 10 MG TABLET PO SCH (10:06)
[2020-01-20] MEDS: PANTOPRAZOLE 40 MG VIAL IV SCH (10:06)
[2020-01-20] MEDS: GABAPENTIN 300 MG CAPSULE PO SCH ×3 (10:06→21:03)
[2020-01-20] MEDS: GLUCOSAM SU DIP CHONDROIT C MN PO SCH (10:07)
[2020-01-20] MEDS: CYANOCOBALAMIN 6000 MCG PO SCH (10:07)
[2020-01-20] MEDS: ASPIRIN EC 325 MG TABLET PO SCH (10:11)
[2020-01-20] MEDS: TIOTROPIUM BROMIDE 18 MCG INH SCH (10:32)
[2020-01-20] MEDS: ALPHA LIPOIC ACID 600 MG PO SCH (21:03)
[2020-01-20] MEDS: SIMVASTATIN 20 MG TABLET PO SCH (21:03)
[2020-01-20] MEDS: FOLIC ACID 0.4 MG TABLET PO SCH (21:03)
[2020-01-21] MEDS: LEVOTHYROXINE 150 MCG TABLET PO SCH (05:38)
[2020-01-21] MEDS: CYANOCOBALAMIN 6000 MCG PO SCH (08:41)
[2020-01-21] MEDS: GLUCOSAM SU DIP CHONDROIT C MN PO SCH (08:41)
[2020-01-21] MEDS: TIOTROPIUM BROMIDE 18 MCG INH SCH (09:34)
[2020-01-21] MEDS: GABAPENTIN 300 MG CAPSULE PO SCH (09:35)
[2020-01-21] MEDS: MONTELUKAST 10 MG TABLET PO SCH (09:35)
[2020-01-21] MEDS: PANTOPRAZOLE 40 MG VIAL IV SCH (09:35)
[2020-01-21] MEDS: ISOSORBIDE MONONITRATE 30 MG TABLET PO SCH (09:35)
[2020-01-21] MEDS: ENOXAPARIN 40 MG/0.4 ML SYRINGE SUBCUT SCH (09:36)
[2020-01-21] MEDS: ASPIRIN EC 325 MG TABLET PO SCH (09:46)
[2020-01-21 12:26] VITALS: BP 131/54
== END 2020-01-21 15:10 | disposition home or self-care (01) | DRG 390 ==
LOC: N.ED 17:50 → N.EDINP 23:14 → N.3E 01-18 01:21
PROVIDERS: ADMIT Surgery; ATTEND Surgery

== ENCOUNTER 2020-05-15 22:26 | Inpatient (IN) ==
[2020-05-16] MEDS ORDERED: MORPHINE 4 MG/1 ML VIAL IV STA (00:29)
[2020-05-16] MEDS ORDERED: ONDANSETRON 4 MG/2 ML VIAL IV STA (00:29)
[2020-05-16 01:09] LABS: Albumin 3.4 G/DL (3.4-5.0); Bilirubin,Total 0.5 MG/DL (0.2-1.0); Calcium 9.8 MG/DL (8.5-10.1); Osmolality,Calculated 279.7 MOS/KG (273-304); Total Protein 7.7 G/DL (6.4-8.3)
[2020-05-16 01:12] LABS: Basophils % 0.5 % (0.0-0.8); Eosinophils # 0.2 10*3/uL (0.0-0.87); Eosinophils % 2.9 % (0.00-10.9); Hemoglobin 11.8 GM/DL (14.0-18.0); Immature Granulocytes % 0.5 %; Immature Granulocytes Absolute 0.04 #; Lymphocytes # 1.3 10*3/uL (1.4-4.0); Lymphocytes % 15.2 % (21.2-54.2); Mean Corpuscular HGB Conc 32.8 GM/DL (32-36); Mean Corpuscular Volume 101.7 FL (87-102); Mean Platelet Volume 9.4 FL (9.6-12.0); Monocytes % 7.7 % (1.7-12.7); Neutrophils % 73.2 % (38.7-73.9); Platelet Count 176 T/CUMM (130-400); Red Blood Count 3.54 MC/CUMM (3.8-5.5); Red Cell Distribution Width 13.5 % (9.3-17.3); White Blood Count 8.3 T/CUMM (4-12)
[2020-05-16] MEDS: LACTATED RINGERS 1,000 ML IV SCH ×2 (02:54→16:13)
[2020-05-16] MEDS: MORPHINE 4 MG/1 ML VIAL IV PRN ×4 (06:26→21:54)
[2020-05-16] MEDS ORDERED: SODIUM CHLORIDE 0.9% 100 ML IV ONE (09:28)
[2020-05-16] MEDS ORDERED: PIPERACILLIN/TAZOBACTAM 3,375 MG VIAL IV ONE (09:28)
[2020-05-16] MEDS: PIPERACILLIN/TAZOBACTAM 3,375 MG in SODIUM CHLORIDE 0.9% 100 ML IV SCH ×2 (09:39→17:53)
[2020-05-16] MEDS: ONDANSETRON 4 MG/2 ML VIAL IV PRN ×2 (09:46→14:04)
[2020-05-16] MEDS ORDERED: INFLUENZA VIRUS VACCINE 0.5 ML SYRINGE IM ONE (15:01)
[2020-05-17] MEDS: PIPERACILLIN/TAZOBACTAM 3,375 MG in SODIUM CHLORIDE 0.9% 100 ML IV SCH ×3 (01:31→18:31)
[2020-05-17] MEDS: MORPHINE 4 MG/1 ML VIAL IV PRN ×3 (05:06→18:16)
[2020-05-17] MEDS ORDERED: GLUCAGON 1 MG VIAL IM PRN (07:47)
[2020-05-17 08:15] LABS: Basophils % 0.3 % (0.0-0.8); Eosinophils # 0.1 10*3/uL (0.0-0.87); Eosinophils % 1.1 % (0.00-10.9); Hematocrit 41.5 VOL% (42.0-52.0); Hemoglobin 13.1 GM/DL (14.0-18.0); Immature Granulocytes % 0.5 %; Immature Granulocytes Absolute 0.05 #; Lymphocytes % 9.7 % (21.2-54.2); Mean Corpuscular HGB Conc 31.6 GM/DL (32-36); Mean Corpuscular Volume 105.9 FL (87-102); Mean Platelet Volume 9.4 FL (9.6-12.0); Monocytes % 13.2 % (1.7-12.7); Neutrophils % 75.2 % (38.7-73.9); Platelet Count 167 T/CUMM (130-400); Red Blood Count 3.92 MC/CUMM (3.8-5.5); Red Cell Distribution Width 13.9 % (9.3-17.3); White Blood Count 10.3 T/CUMM (4-12)
[2020-05-17 08:32] LABS: Calcium 8.8 MG/DL (8.5-10.1); Osmolality,Calculated 280.7 MOS/KG (273-304)
[2020-05-17] MEDS ORDERED: ENOXAPARIN 40 MG/0.4 ML SYRINGE SUBCUT SCH (09:00)
[2020-05-17] MEDS: LACTATED RINGERS 1,000 ML IV SCH ×3 (09:28→23:12)
[2020-05-17] MEDS ORDERED: NOREPINEPHRINE 4 MG/4 ML VIAL IV ONE ×2 (11:56→21:09)
[2020-05-17] MEDS ORDERED: propofoL 200 MG/20 ML VIAL IV ONE (12:57)
[2020-05-17] MEDS ORDERED: LIDOCAINE 2% 5 ML VIAL ONE (12:57)
[2020-05-17] MEDS ORDERED: SEVOFLURANE 1 UNIT/15 MINUTE INH ONE (12:57)
[2020-05-17] MEDS ORDERED: ALBUMIN 5% 12.5 GM/250 ML VIAL IV ONE ×2 (12:57→21:08)
[2020-05-17] MEDS ORDERED: ROCURONIUM 100 MG/10 ML VIAL IV ONE (12:58)
[2020-05-17] MEDS ORDERED: SODIUM CHLORIDE 0.9% 100 ML IV ONE (12:58)
[2020-05-17] MEDS ORDERED: SODIUM CHLORIDE 0.9% 2,000 ML IV ONE (12:58)
[2020-05-17] MEDS ORDERED: fentaNYL 100 MCG/2 ML VIAL ONE (12:58)
[2020-05-17] MEDS ORDERED: EPINEPHrine 1 MG/ML VIAL ONE (12:58)
[2020-05-17] MEDS ORDERED: SUCCINYLCHOLINE 200 MG/10 ML VIAL ONE (12:58)
[2020-05-17 13:14] LABS: ABG Base Excess -5.2 MMOL/L (-2.5-2.5); ABG HCO3 20.1 MMOL/L (20-26); ABG Oxygen Saturation 96.2 % (95-100); ABG PCO2 52.1 MM HG (35-48); ABG PH 7.244 (7.35-7.45); ABG TCO2 20.7 MMOL/L (23-27)
[2020-05-17 13:36] LABS: Bilirubin,Urine Negative (Negative); Blood, Urine Negative (Negative); Glucose,Urine (UA) Negative (Negative); Ketones,Urine Negative (Negative); Nitrite,Urine Negative (Negative); Protein,Urine 30 MG/DL; RBC,Urine 3 /HPF (0-4); Squamous Epithelial Cell,Urine Occasional /HPF (0-10); Urine Appearance CLEAR (Clear); Urine Color Yellow (Yellow); Urine Specific Gravity 1.013 (1.001-1.035); Urine Urobilinogen < 2.0 EU/DL (0.2-1.0); WBC,Urine <1 /HPF (0-6)
[2020-05-17] MEDS ORDERED: SODIUM BICARBONATE 50 MEQ/50 ML VIAL IV ONE ×2 (13:59→14:01)
[2020-05-17] MEDS ORDERED: ONDANSETRON 4 MG/2 ML VIAL ONE (14:12)
[2020-05-17] MEDS ORDERED: HYDROmorphone 2 MG/1 ML VIAL ONE (14:12)
[2020-05-17] MEDS: HYDROmorphone 2 MG/1 ML VIAL IV PRN ×2 (14:14→14:42)
[2020-05-17] MEDS ORDERED: ONDANSETRON 4 MG/2 ML VIAL IV PRN (14:16)
[2020-05-17] MEDS: INSULIN LISPRO 100 UNIT/ML SUBCUT SCH ×3 (16:55→23:38)
[2020-05-17] MEDS: HEPARIN/NACL 0.9% 2 UNITS/ML 500 ML IV SCH (18:15)
[2020-05-17] MEDS: ALBUTEROL/IPRATROPIUM 3 ML NEB RESP TX SCH (18:58)
[2020-05-17] MEDS ORDERED: ALBUMIN 5% 25 GM in PREMIX 1 EACH IV ONE (20:54)
[2020-05-17] MEDS: NOREPINEPHRINE 8 MG in SODIUM CHLORIDE 0.9% 242 ML IV PRN (21:25)
[2020-05-17] MEDS ORDERED: LACTATED RINGERS 1,000 ML IV ONE (23:10)
[2020-05-18] MEDS: HYDROmorphone 2 MG/1 ML VIAL IV PRN ×4 (00:05→18:30)
[2020-05-18] MEDS: ALBUTEROL/IPRATROPIUM 3 ML NEB RESP TX SCH ×4 (01:35→19:10)
[2020-05-18] MEDS: PIPERACILLIN/TAZOBACTAM 3,375 MG in SODIUM CHLORIDE 0.9% 100 ML IV SCH ×3 (01:43→16:38)
[2020-05-18] MEDS: NOREPINEPHRINE 8 MG in SODIUM CHLORIDE 0.9% 242 ML IV PRN (04:15)
[2020-05-18 05:17] LABS: Basophils % 0.1 % (0.0-0.8); Eosinophils # 0.3 10*3/uL (0.0-0.87); Hematocrit 32.7 VOL% (42.0-52.0); Hemoglobin 10.7 GM/DL (14.0-18.0); Immature Granulocytes % 0.2 %; Immature Granulocytes Absolute 0.02 #; Lymphocytes # 1.5 10*3/uL (1.4-4.0); Lymphocytes % 18.1 % (21.2-54.2); Mean Corpuscular HGB Conc 32.7 GM/DL (32-36); Mean Corpuscular Volume 100.9 FL (87-102); Mean Platelet Volume 9.1 FL (9.6-12.0); Neutrophils % 72.6 % (38.7-73.9); Platelet Count 158 T/CUMM (130-400); Red Blood Count 3.24 MC/CUMM (3.8-5.5); Red Cell Distribution Width 13.7 % (9.3-17.3); White Blood Count 8.1 T/CUMM (4-12)
[2020-05-18 05:27] LABS: ABG Base Excess 1.1 MMOL/L (-2.5-2.5); ABG HCO3 25.5 MMOL/L (20-26); ABG Oxygen Saturation 99.9 % (95-100); ABG PCO2 33.1 MM HG (35-48); ABG PH 7.473 (7.35-7.45); ABG TCO2 21.9 MMOL/L (23-27)
[2020-05-18 05:32] LABS: Band Neutrophils 3 % (0-10); Eosinophils 3 % (0-10); Lymphocytes 18 % (20-55); Platelet Estimate Normal; Segmented Neutrophils 69 % (50-85); Total Cells Counted 100
[2020-05-18 05:33] LABS: Macrocytosis Slight
[2020-05-18 05:41] LABS: Alanine Aminotransferase < 6 U/L (16-61); Albumin 2.3 G/DL (3.4-5.0); Alkaline Phosphatase 42 U/L (45-117); Aspartate Amino Transferase 10 U/L (0-37); Blood Urea Nitrogen 28 MG/DL (7-18); Calcium 7.8 MG/DL (8.5-10.1); Estimated Glom Filtration Rate 30 ML/MIN; Glucose 140 MG/DL (74-106); Osmolality,Calculated 282.7 MOS/KG (273-304); Total Protein 4.6 G/DL (6.4-8.3)
[2020-05-18] MEDS: INSULIN LISPRO 100 UNIT/ML SUBCUT SCH ×4 (05:41→23:52)
[2020-05-18] MEDS: LACTATED RINGERS 1,000 ML IV SCH ×3 (07:52→23:29)
[2020-05-18] MEDS: ENOXAPARIN 30 MG/0.3 ML SYRINGE SUBCUT SCH (10:42)
[2020-05-18] MEDS: PANTOPRAZOLE 40 MG VIAL IV SCH (10:42)
[2020-05-18 11:17] LABS: ABG Base Excess -0.8 MMOL/L (-2.5-2.5); ABG HCO3 23.7 MMOL/L (20-26); ABG Oxygen Saturation 98.1 % (95-100); ABG PCO2 52.7 MM HG (35-48); ABG PH 7.304 (7.35-7.45)
[2020-05-18] MEDS: HEPARIN/NACL 0.9% 2 UNITS/ML 500 ML IV SCH (16:37)
[2020-05-18] MEDS ORDERED: ALBUMIN 5% 25 GM in PREMIX 1 EACH IV PRN (16:44)
[2020-05-18] MEDS ORDERED: ALBUMIN 5% 12.5 GM/250 ML VIAL IV ONE (16:47)
[2020-05-18] MEDS ORDERED: ALBUMIN 5% 12.5 GM in PREMIX 1 EACH IV PRN (16:51)
[2020-05-19] MEDS: ALBUTEROL/IPRATROPIUM 3 ML NEB RESP TX SCH ×4 (00:54→19:37)
[2020-05-19] MEDS: PIPERACILLIN/TAZOBACTAM 3,375 MG in SODIUM CHLORIDE 0.9% 100 ML IV SCH ×3 (02:13→17:57)
[2020-05-19] MEDS: HYDROmorphone 2 MG/1 ML VIAL IV PRN ×4 (02:14→14:16)
[2020-05-19] MEDS: INSULIN LISPRO 100 UNIT/ML SUBCUT SCH ×3 (05:51→17:26)
[2020-05-19] MEDS: DEXTROSE 50% 25 GM/50 ML VIAL IV PRN (06:00)
[2020-05-19] MEDS: LACTATED RINGERS 1,000 ML IV SCH ×2 (06:34→14:35)
[2020-05-19 08:28] LABS: Basophils % 0.2 % (0.0-0.8); Eosinophils # 0.3 10*3/uL (0.0-0.87); Eosinophils % 4.1 % (0.00-10.9); Hematocrit 28.2 VOL% (42.0-52.0); Immature Granulocytes % 0.5 %; Immature Granulocytes Absolute 0.03 #; Lymphocytes # 0.8 10*3/uL (1.4-4.0); Lymphocytes % 12.6 % (21.2-54.2); Mean Corpuscular HGB Conc 31.9 GM/DL (32-36); Mean Corpuscular Volume 105.2 FL (87-102); Mean Platelet Volume 9.6 FL (9.6-12.0); Neutrophils % 73.6 % (38.7-73.9); Platelet Count 116 T/CUMM (130-400); Red Blood Count 2.68 MC/CUMM (3.8-5.5); Red Cell Distribution Width 14.2 % (9.3-17.3); White Blood Count 6.4 T/CUMM (4-12)
[2020-05-19 08:51] LABS: Calcium 8.1 MG/DL (8.5-10.1); Osmolality,Calculated 287.3 MOS/KG (273-304)
[2020-05-19] MEDS: PANTOPRAZOLE 40 MG VIAL IV SCH (09:49)
[2020-05-19] MEDS: ENOXAPARIN 30 MG/0.3 ML SYRINGE SUBCUT SCH (09:49)
[2020-05-19] MEDS ORDERED: FUROSEMIDE 20 MG/2 ML VIAL IV ONE (10:55)
[2020-05-19] MEDS: HEPARIN/NACL 0.9% 2 UNITS/ML 500 ML IV SCH (16:23)
[2020-05-20] MEDS: DEXTROSE 50% 25 GM/50 ML VIAL IV PRN (00:03)
[2020-05-20] MEDS: INSULIN LISPRO 100 UNIT/ML SUBCUT SCH ×4 (00:16→18:13)
[2020-05-20] MEDS: PIPERACILLIN/TAZOBACTAM 3,375 MG in SODIUM CHLORIDE 0.9% 100 ML IV SCH ×3 (00:34→17:20)
[2020-05-20] MEDS: HYDROmorphone 2 MG/1 ML VIAL IV PRN ×3 (00:34→23:20)
[2020-05-20] MEDS: ALBUTEROL/IPRATROPIUM 3 ML NEB RESP TX SCH ×4 (00:44→20:10)
[2020-05-20] MEDS: PANTOPRAZOLE 40 MG VIAL IV SCH (09:09)
[2020-05-20] MEDS: ENOXAPARIN 30 MG/0.3 ML SYRINGE SUBCUT SCH (09:10)
[2020-05-20 12:01] LABS: Basophils % 0.3 % (0.0-0.8); Eosinophils # 0.1 10*3/uL (0.0-0.87); Hematocrit 33.4 VOL% (42.0-52.0); Hemoglobin 10.3 GM/DL (14.0-18.0); Immature Granulocytes % 0.7 %; Immature Granulocytes Absolute 0.07 #; Lymphocytes # 0.8 10*3/uL (1.4-4.0); Lymphocytes % 7.4 % (21.2-54.2); Mean Corpuscular HGB Conc 30.8 GM/DL (32-36); Mean Corpuscular Volume 106.4 FL (87-102); Mean Platelet Volume 9.4 FL (9.6-12.0); Monocytes % 8.4 % (1.7-12.7); Neutrophils % 82.2 % (38.7-73.9); Platelet Count 123 T/CUMM (130-400); Red Blood Count 3.14 MC/CUMM (3.8-5.5); Red Cell Distribution Width 14.2 % (9.3-17.3); White Blood Count 10.7 T/CUMM (4-12)
[2020-05-20 12:21] LABS: Calcium 8.8 MG/DL (8.5-10.1); Osmolality,Calculated 285.4 MOS/KG (273-304)
[2020-05-20 12:57] LABS: Band Neutrophils 1 % (0-10); Lymphocytes 4 % (20-55); Metamyelocytes 3 %; Platelet Estimate Adequate; Polychromasia Slight; Segmented Neutrophils 83 % (50-85); Total Cells Counted 100
[2020-05-20 14:17] LABS: ABG Base Excess -4.8 MMOL/L (-2.5-2.5); ABG HCO3 20.3 MMOL/L (20-26); ABG Oxygen Saturation 90.5 % (95-100); ABG PO2 80.8 MM HG (80-95)
[2020-05-20] MEDS: LACTATED RINGERS 1,000 ML IV SCH ×2 (14:19→21:40)
[2020-05-20 14:22] LABS: ABG PCO2 79.9 MM HG (35-48); ABG PH 7.125 (7.35-7.45)
[2020-05-20 14:28] LABS: Calcium 8.7 MG/DL (8.5-10.1); Osmolality,Calculated 289.1 MOS/KG (273-304)
[2020-05-20] MEDS: ALBUMIN 5% 25 GM in PREMIX 1 EACH IV SCH ×2 (15:28→23:21)
[2020-05-20 16:45] LABS: Allen Test Positive; Pt O2 Delivery Device BIPAP
[2020-05-20 16:46] LABS: ABG Base Excess -3.4 MMOL/L (-2.5-2.5); ABG HCO3 21.5 MMOL/L (20-26); ABG Oxygen Saturation 92.7 % (95-100); ABG PCO2 49.7 MM HG (35-48); ABG PH 7.283 (7.35-7.45); ABG PO2 67.8 MM HG (80-95); ABG TCO2 21.8 MMOL/L (23-27)
[2020-05-21] MEDS: INSULIN LISPRO 100 UNIT/ML SUBCUT SCH ×4 (00:26→18:12)
[2020-05-21] MEDS: ALBUTEROL/IPRATROPIUM 3 ML NEB RESP TX SCH ×4 (01:03→19:39)
[2020-05-21] MEDS: PIPERACILLIN/TAZOBACTAM 3,375 MG in SODIUM CHLORIDE 0.9% 100 ML IV SCH ×3 (02:28→16:59)
[2020-05-21 03:54] LABS: Basophils % 0.4 % (0.0-0.8); Eosinophils # 0.1 10*3/uL (0.0-0.87); Eosinophils % 1.9 % (0.00-10.9); Hematocrit 27.8 VOL% (42.0-52.0); Hemoglobin 8.7 GM/DL (14.0-18.0); Immature Granulocytes % 0.4 %; Immature Granulocytes Absolute 0.02 #; Lymphocytes # 0.8 10*3/uL (1.4-4.0); Lymphocytes % 17.8 % (21.2-54.2); Mean Corpuscular HGB Conc 31.3 GM/DL (32-36); Mean Corpuscular Volume 105.3 FL (87-102); Mean Platelet Volume 10.3 FL (9.6-12.0); Neutrophils % 70.5 % (38.7-73.9); Platelet Count 89 T/CUMM (130-400); Red Blood Count 2.64 MC/CUMM (3.8-5.5); Red Cell Distribution Width 13.9 % (9.3-17.3); White Blood Count 4.7 T/CUMM (4-12)
[2020-05-21 04:22] LABS: Albumin 2.9 G/DL (3.4-5.0); Bilirubin,Total 0.6 MG/DL (0.2-1.0); Calcium 8.4 MG/DL (8.5-10.1); Osmolality,Calculated 295.7 MOS/KG (273-304); Total Protein 5.7 G/DL (6.4-8.3)
[2020-05-21 04:37] LABS: ABG Base Excess -1.6 MMOL/L (-2.5-2.5); ABG HCO3 23.1 MMOL/L (20-26); ABG Oxygen Saturation 97.2 % (95-100); ABG PCO2 46.3 MM HG (35-48); ABG PH 7.331 (7.35-7.45); ABG PO2 93.3 MM HG (80-95); ABG TCO2 22.9 MMOL/L (23-27); Allen Test Positive; Pt O2 Delivery Device BIPAP
[2020-05-21] MEDS: ALBUMIN 5% 25 GM in PREMIX 1 EACH IV SCH ×2 (06:45→15:10)
[2020-05-21] MEDS: HYDROmorphone 2 MG/1 ML VIAL IV PRN ×2 (08:23→16:59)
[2020-05-21] MEDS: ENOXAPARIN 30 MG/0.3 ML SYRINGE SUBCUT SCH (08:24)
[2020-05-21] MEDS: PANTOPRAZOLE 40 MG VIAL IV SCH (08:24)
[2020-05-21] MEDS ORDERED: FUROSEMIDE 40 MG/4 ML VIAL IV ONE (10:49)
[2020-05-21 11:26] LABS: Platelet Estimate Adequate; Polychromasia Slight
[2020-05-21] MEDS: LACTATED RINGERS 1,000 ML IV SCH (12:28)
[2020-05-22] MEDS: HYDROmorphone 2 MG/1 ML VIAL IV PRN (00:04)
[2020-05-22] MEDS: INSULIN LISPRO 100 UNIT/ML SUBCUT SCH ×4 (00:13→18:07)
[2020-05-22] MEDS: ALBUTEROL/IPRATROPIUM 3 ML NEB RESP TX SCH ×6 (00:26→23:00)
[2020-05-22] MEDS: DEXTROSE 50% 25 GM/50 ML VIAL IV PRN (00:29)
[2020-05-22] MEDS: PIPERACILLIN/TAZOBACTAM 3,375 MG in SODIUM CHLORIDE 0.9% 100 ML IV SCH ×3 (00:30→17:17)
[2020-05-22] MEDS ORDERED: ALBUTEROL/IPRATROPIUM 3 ML NEB RESP TX ONE (04:13)
[2020-05-22] MEDS ORDERED: NALOXONE 0.4 MG/ML VIAL IV ONE (04:49)
[2020-05-22 06:07] LABS: Albumin 3.5 G/DL (3.4-5.0); Bilirubin,Total 0.7 MG/DL (0.2-1.0); Osmolality,Calculated 296.8 MOS/KG (273-304); Total Protein 6.7 G/DL (6.4-8.3)
[2020-05-22] MEDS: LACTATED RINGERS 1,000 ML IV SCH ×4 (07:01→21:20)
[2020-05-22] MEDS: PANTOPRAZOLE 40 MG VIAL IV SCH (09:03)
[2020-05-22] MEDS: ENOXAPARIN 30 MG/0.3 ML SYRINGE SUBCUT SCH (09:08)
[2020-05-22] MEDS: methylPREDNISolone SOD SUC 40 MG/1 ML VIAL IV SCH ×2 (09:15→17:17)
[2020-05-22] MEDS ORDERED: FUROSEMIDE 40 MG/4 ML VIAL IV ONE (10:00)
[2020-05-22] MEDS ORDERED: ACETAMINOPHEN 325 MG TABLET PO PRN (15:00)
[2020-05-22] MEDS: amLODIPine 5 MG TABLET PO SCH (15:03)
[2020-05-22] MEDS: ACETAMINOPHEN 325 MG TABLET PO SCH ×2 (15:08→21:20)
[2020-05-23] MEDS: INSULIN LISPRO 100 UNIT/ML SUBCUT SCH ×4 (00:31→18:47)
[2020-05-23] MEDS: methylPREDNISolone SOD SUC 40 MG/1 ML VIAL IV SCH ×3 (00:57→16:28)
[2020-05-23] MEDS: PIPERACILLIN/TAZOBACTAM 3,375 MG in SODIUM CHLORIDE 0.9% 100 ML IV SCH ×3 (02:30→16:37)
[2020-05-23] MEDS: ACETAMINOPHEN 325 MG TABLET PO SCH ×4 (03:01→21:38)
[2020-05-23 04:32] LABS: Basophils % 0.1 % (0.0-0.8); Hematocrit 30.9 VOL% (42.0-52.0); Hemoglobin 9.8 GM/DL (14.0-18.0); Immature Granulocytes % 0.6 %; Immature Granulocytes Absolute 0.04 #; Lymphocytes # 0.5 10*3/uL (1.4-4.0); Lymphocytes % 6.9 % (21.2-54.2); Mean Corpuscular HGB Conc 31.7 GM/DL (32-36); Mean Platelet Volume 10.2 FL (9.6-12.0); Monocytes % 5.1 % (1.7-12.7); Neutrophils % 87.3 % (38.7-73.9); Platelet Count 124 T/CUMM (130-400); Red Blood Count 2.97 MC/CUMM (3.8-5.5); Red Cell Distribution Width 13.6 % (9.3-17.3); White Blood Count 6.9 T/CUMM (4-12)
[2020-05-23 04:59] LABS: Calcium 9.2 MG/DL (8.5-10.1); Osmolality,Calculated 303.6 MOS/KG (273-304)
[2020-05-23] MEDS: ALBUTEROL/IPRATROPIUM 3 ML NEB RESP TX SCH ×5 (07:00→23:58)
[2020-05-23] MEDS: PANTOPRAZOLE 40 MG VIAL IV SCH (08:41)
[2020-05-23] MEDS: amLODIPine 5 MG TABLET PO SCH (08:41)
[2020-05-23] MEDS: ENOXAPARIN 30 MG/0.3 ML SYRINGE SUBCUT SCH (08:42)
[2020-05-23] MEDS: LACTATED RINGERS 1,000 ML IV SCH (10:41)
[2020-05-23] MEDS ORDERED: FUROSEMIDE 40 MG/4 ML VIAL IV ONE (14:07)
[2020-05-24] MEDS: INSULIN LISPRO 100 UNIT/ML SUBCUT SCH ×4 (00:32→17:39)
[2020-05-24] MEDS: LACTATED RINGERS 1,000 ML IV SCH ×2 (00:33→14:18)
[2020-05-24] MEDS: methylPREDNISolone SOD SUC 40 MG/1 ML VIAL IV SCH ×3 (00:45→21:10)
[2020-05-24] MEDS: PIPERACILLIN/TAZOBACTAM 3,375 MG in SODIUM CHLORIDE 0.9% 100 ML IV SCH ×2 (00:45→08:31)
[2020-05-24] MEDS: ACETAMINOPHEN 325 MG TABLET PO SCH ×4 (04:34→21:10)
[2020-05-24] MEDS: amLODIPine 5 MG TABLET PO SCH (08:31)
[2020-05-24] MEDS: PANTOPRAZOLE 40 MG VIAL IV SCH (08:31)
[2020-05-24] MEDS: ENOXAPARIN 30 MG/0.3 ML SYRINGE SUBCUT SCH (08:31)
[2020-05-24] MEDS: ALBUTEROL/IPRATROPIUM 3 ML NEB RESP TX SCH ×4 (08:35→19:26)
[2020-05-24] MEDS: cefTRIAXone 1,000 MG in SYRINGE 1 EACH IV SCH (14:44)
[2020-05-24] MEDS: diphenhydrAMINE CAP 25 MG CAPSULE PO PRN (21:10)
[2020-05-25] MEDS: INSULIN LISPRO 100 UNIT/ML SUBCUT SCH ×4 (00:11→18:10)
[2020-05-25] MEDS: LACTATED RINGERS 1,000 ML IV SCH ×2 (04:26→13:45)
[2020-05-25] MEDS: ACETAMINOPHEN 325 MG TABLET PO SCH ×4 (04:27→20:16)
[2020-05-25] MEDS: ALBUTEROL/IPRATROPIUM 3 ML NEB RESP TX SCH ×5 (07:53→19:07)
[2020-05-25] MEDS: PANTOPRAZOLE 40 MG VIAL IV SCH (08:26)
[2020-05-25] MEDS: methylPREDNISolone SOD SUC 40 MG/1 ML VIAL IV SCH ×2 (08:26→20:16)
[2020-05-25] MEDS: ENOXAPARIN 30 MG/0.3 ML SYRINGE SUBCUT SCH (08:26)
[2020-05-25] MEDS: amLODIPine 5 MG TABLET PO SCH (08:26)
[2020-05-25 09:16] LABS: Hematocrit 31.4 VOL% (42.0-52.0); Hemoglobin 10.1 GM/DL (14.0-18.0); Immature Granulocytes % 0.6 %; Immature Granulocytes Absolute 0.05 #; Lymphocytes # 0.8 10*3/uL (1.4-4.0); Lymphocytes % 9.7 % (21.2-54.2); Mean Corpuscular HGB Conc 32.2 GM/DL (32-36); Mean Corpuscular Volume 101.3 FL (87-102); Mean Platelet Volume 10.2 FL (9.6-12.0); Neutrophils % 80.7 % (38.7-73.9); Platelet Count 164 T/CUMM (130-400); Red Cell Distribution Width 14.1 % (9.3-17.3); White Blood Count 8.3 T/CUMM (4-12)
[2020-05-25 09:42] LABS: Calcium 9.4 MG/DL (8.5-10.1); Osmolality,Calculated 300.7 MOS/KG (273-304)
[2020-05-25] MEDS ORDERED: MAGNESIUM SULF RIDER 2 GM in PREMIX 1 EACH IV PRN (13:15)
[2020-05-25] MEDS ORDERED: MAGNESIUM SULF RIDER 4 GM in PREMIX 1 EACH IV PRN (13:15)
[2020-05-25] MEDS: cefTRIAXone 1,000 MG in SYRINGE 1 EACH IV SCH (13:43)
[2020-05-25] MEDS: POTASSIUM CHLORIDE RIDER 10 MEQ in PREMIX 1 EACH IV PRN ×4 (13:44→17:03)
[2020-05-26] MEDS: INSULIN LISPRO 100 UNIT/ML SUBCUT SCH ×4 (00:25→17:29)
[2020-05-26] MEDS: ACETAMINOPHEN 325 MG TABLET PO SCH ×4 (03:22→20:23)
[2020-05-26] MEDS: LACTATED RINGERS 1,000 ML IV SCH ×4 (03:23→20:24)
[2020-05-26] MEDS: ALBUTEROL/IPRATROPIUM 3 ML NEB RESP TX SCH ×7 (05:38→23:55)
[2020-05-26] MEDS: amLODIPine 5 MG TABLET PO SCH (08:01)
[2020-05-26] MEDS: PANTOPRAZOLE 40 MG VIAL IV SCH (08:01)
[2020-05-26] MEDS: ENOXAPARIN 30 MG/0.3 ML SYRINGE SUBCUT SCH (08:02)
[2020-05-26] MEDS: methylPREDNISolone SOD SUC 40 MG/1 ML VIAL IV SCH ×2 (08:08→20:23)
[2020-05-26] MEDS: cefTRIAXone 1,000 MG in SYRINGE 1 EACH IV SCH (13:06)
[2020-05-26] MEDS: diphenhydrAMINE CAP 25 MG CAPSULE PO PRN (20:23)
[2020-05-27] MEDS: INSULIN LISPRO 100 UNIT/ML SUBCUT SCH ×4 (00:25→17:12)
[2020-05-27] MEDS: ACETAMINOPHEN 325 MG TABLET PO SCH ×3 (03:54→14:56)
[2020-05-27] MEDS: ALBUTEROL/IPRATROPIUM 3 ML NEB RESP TX SCH ×5 (07:38→23:00)
[2020-05-27] MEDS: methylPREDNISolone SOD SUC 40 MG/1 ML VIAL IV SCH ×2 (08:35→20:41)
[2020-05-27] MEDS: PANTOPRAZOLE 40 MG VIAL IV SCH (08:36)
[2020-05-27] MEDS: ENOXAPARIN 30 MG/0.3 ML SYRINGE SUBCUT SCH (08:37)
[2020-05-27] MEDS: amLODIPine 5 MG TABLET PO SCH (08:37)
[2020-05-27] MEDS: cefTRIAXone 1,000 MG in SYRINGE 1 EACH IV SCH (14:56)
[2020-05-27] MEDS: LACTATED RINGERS 1,000 ML IV SCH (20:37)
[2020-05-27] MEDS: diphenhydrAMINE CAP 25 MG CAPSULE PO PRN (20:38)
[2020-05-28] MEDS: ACETAMINOPHEN 325 MG TABLET PO SCH ×6 (00:22→22:09)
[2020-05-28] MEDS: INSULIN LISPRO 100 UNIT/ML SUBCUT SCH ×4 (01:15→17:08)
[2020-05-28] MEDS: LACTATED RINGERS 1,000 ML IV SCH ×2 (06:21→13:05)
[2020-05-28 06:35] LABS: Basophils % 0.1 % (0.0-0.8); Hematocrit 32.9 VOL% (42.0-52.0); Hemoglobin 10.6 GM/DL (14.0-18.0); Immature Granulocytes % 1.1 %; Immature Granulocytes Absolute 0.14 #; Lymphocytes # 0.5 10*3/uL (1.4-4.0); Mean Corpuscular HGB Conc 32.2 GM/DL (32-36); Mean Corpuscular Volume 100.9 FL (87-102); Mean Platelet Volume 10.8 FL (9.6-12.0); Monocytes % 4.8 % (1.7-12.7); Platelet Count 221 T/CUMM (130-400); Red Blood Count 3.26 MC/CUMM (3.8-5.5); Red Cell Distribution Width 14.6 % (9.3-17.3); White Blood Count 13.2 T/CUMM (4-12)
[2020-05-28 06:44] LABS: Calcium 9.2 MG/DL (8.5-10.1); Osmolality,Calculated 291.4 MOS/KG (273-304)
[2020-05-28 06:56] LABS: Hypochromasia 1+; Lymphocytes 6 % (20-55); Platelet Estimate Adequate; Segmented Neutrophils 91 % (50-85); Total Cells Counted 100
[2020-05-28] MEDS: ALBUTEROL/IPRATROPIUM 3 ML NEB RESP TX SCH ×4 (07:05→19:30)
[2020-05-28] MEDS: methylPREDNISolone SOD SUC 40 MG/1 ML VIAL IV SCH ×2 (09:33→22:08)
[2020-05-28] MEDS: ENOXAPARIN 30 MG/0.3 ML SYRINGE SUBCUT SCH (09:34)
[2020-05-28] MEDS: PANTOPRAZOLE 40 MG VIAL IV SCH (09:34)
[2020-05-28] MEDS: amLODIPine 5 MG TABLET PO SCH (09:35)
[2020-05-28] MEDS ORDERED: FUROSEMIDE 20 MG/2 ML VIAL IV ONE (10:15)
[2020-05-28 10:42] LABS: Basophils % 0.1 % (0.0-0.8); Hemoglobin 10.6 GM/DL (14.0-18.0); Immature Granulocytes % 0.9 %; Lymphocytes # 0.7 10*3/uL (1.4-4.0); Lymphocytes % 6.4 % (21.2-54.2); Mean Corpuscular HGB Conc 32.1 GM/DL (32-36); Mean Corpuscular Volume 100.6 FL (87-102); Mean Platelet Volume 10.5 FL (9.6-12.0); Monocytes % 6.4 % (1.7-12.7); Neutrophils % 86.2 % (38.7-73.9); Platelet Count 187 T/CUMM (130-400); Red Blood Count 3.28 MC/CUMM (3.8-5.5); Red Cell Distribution Width 14.6 % (9.3-17.3); White Blood Count 11.5 T/CUMM (4-12)
[2020-05-28] MEDS: AZITHROMYCIN INJ 250 MG in SODIUM CHLORIDE 0.9% 250 ML IV SCH (12:09)
[2020-05-28] MEDS: cefTRIAXone 1,000 MG in SYRINGE 1 EACH IV SCH (14:28)
[2020-05-29] MEDS: ALBUTEROL/IPRATROPIUM 3 ML NEB RESP TX SCH ×5 (00:58→19:20)
[2020-05-29] MEDS: INSULIN LISPRO 100 UNIT/ML SUBCUT SCH ×4 (01:16→18:24)
[2020-05-29] MEDS: ACETAMINOPHEN 325 MG TABLET PO SCH ×4 (04:05→21:26)
[2020-05-29] MEDS: methylPREDNISolone SOD SUC 40 MG/1 ML VIAL IV SCH ×2 (08:53→21:25)
[2020-05-29] MEDS: PANTOPRAZOLE 40 MG VIAL IV SCH (08:55)
[2020-05-29] MEDS: ENOXAPARIN 30 MG/0.3 ML SYRINGE SUBCUT SCH (08:58)
[2020-05-29] MEDS: amLODIPine 5 MG TABLET PO SCH (08:58)
[2020-05-29 09:00] LABS: ABG Base Excess 7.1 MMOL/L (-2.5-2.5); ABG HCO3 30.7 MMOL/L (20-26); ABG Oxygen Saturation 88.3 % (95-100); ABG PCO2 44.4 MM HG (35-48); ABG PH 7.462 (7.35-7.45); ABG PO2 56.9 MM HG (80-95); ABG TCO2 28.5 MMOL/L (23-27)
[2020-05-29] MEDS: AZITHROMYCIN INJ 250 MG in SODIUM CHLORIDE 0.9% 250 ML IV SCH (12:57)
[2020-05-29] MEDS: LACTATED RINGERS 1,000 ML IV SCH (13:02)
[2020-05-29] MEDS: cefTRIAXone 1,000 MG in SYRINGE 1 EACH IV SCH (15:07)
[2020-05-30] MEDS: ALBUTEROL/IPRATROPIUM 3 ML NEB RESP TX SCH ×6 (01:30→22:40)
[2020-05-30] MEDS: INSULIN LISPRO 100 UNIT/ML SUBCUT SCH ×2 (01:38→06:47)
[2020-05-30] MEDS: ACETAMINOPHEN 325 MG TABLET PO SCH ×3 (02:58→16:12)
[2020-05-30 07:20] LABS: Basophils % 0.1 % (0.0-0.8); Hemoglobin 10.4 GM/DL (14.0-18.0); Immature Granulocytes % 0.7 %; Immature Granulocytes Absolute 0.07 #; Lymphocytes # 0.5 10*3/uL (1.4-4.0); Lymphocytes % 4.3 % (21.2-54.2); Mean Corpuscular HGB Conc 33.5 GM/DL (32-36); Mean Corpuscular Volume 98.1 FL (87-102); Mean Platelet Volume 10.5 FL (9.6-12.0); Neutrophils % 91.9 % (38.7-73.9); Platelet Count 221 T/CUMM (130-400); Red Blood Count 3.16 MC/CUMM (3.8-5.5); Red Cell Distribution Width 14.9 % (9.3-17.3); White Blood Count 10.6 T/CUMM (4-12)
[2020-05-30 07:35] LABS: Calcium 8.8 MG/DL (8.5-10.1); Osmolality,Calculated 293.1 MOS/KG (273-304)
[2020-05-30 07:50] LABS: Hypochromasia 1+; Lymphocytes 3 % (20-55); Microcytosis Slight; Platelet Estimate Adequate; Segmented Neutrophils 92 % (50-85); Total Cells Counted 100
[2020-05-30] MEDS: methylPREDNISolone SOD SUC 40 MG/1 ML VIAL IV SCH ×2 (08:52→21:55)
[2020-05-30] MEDS: PANTOPRAZOLE 40 MG VIAL IV SCH (08:54)
[2020-05-30] MEDS: ENOXAPARIN 30 MG/0.3 ML SYRINGE SUBCUT SCH (08:58)
[2020-05-30] MEDS: amLODIPine 5 MG TABLET PO SCH (09:00)
[2020-05-30] MEDS: LACTATED RINGERS 1,000 ML IV SCH ×2 (10:59→16:12)
[2020-05-30] MEDS: AZITHROMYCIN INJ 250 MG in SODIUM CHLORIDE 0.9% 250 ML IV SCH (11:51)
[2020-05-30] MEDS ORDERED: ACETAMINOPHEN 325 MG TABLET PO PRN (15:36)
[2020-05-30 17:03] LABS: ABG Base Excess -0.4 MMOL/L (-2.5-2.5); ABG HCO3 23.8 MMOL/L (20-26); ABG Oxygen Saturation 84.7 % (95-100); ABG PO2 74.5 MM HG (80-95); Allen Test Positive; Pt O2 Delivery Device BIPAP
[2020-05-30 17:09] LABS: ABG PH 7.064 (7.35-7.45)
[2020-05-30] MEDS ORDERED: ETOMIDATE 20 MG/10 ML VIAL IV ONE ×2 (17:20→17:24)
[2020-05-30] MEDS ORDERED: SUCCINYLCHOLINE 200 MG/10 ML VIAL IV ONE (17:22)
[2020-05-30] MEDS ORDERED: SUCCINYLCHOLINE 200 MG/10 ML VIAL ONE (17:25)
[2020-05-30 18:05] LABS: Bilirubin,Urine Negative (Negative); Blood, Urine Moderate mg/dL (Negative); Glucose,Urine (UA) Negative (Negative); Ketones,Urine Negative (Negative); Mucus,Urine Occasional /LPF (Occasional); Nitrite,Urine Negative (Negative); Protein,Urine >=500 MG/DL; RBC,Urine 14 /HPF (0-4); Squamous Epithelial Cell,Urine Occasional /HPF (0-10); Urine Appearance CLEAR (Clear); Urine Color Yellow (Yellow); Urine Specific Gravity 1.013 (1.001-1.035); Urine Urobilinogen < 2.0 EU/DL (0.2-1.0); WBC,Urine 1 /HPF (0-6)
[2020-05-30] MEDS: MIDAZOLAM 100 MG in SODIUM CHLORIDE 0.9% 80 ML IV PRN (18:30)
[2020-05-30] MEDS ORDERED: DOPamine 800 MG/250 ML PREMIX IV PRN (19:20)
[2020-05-30] MEDS: cefTRIAXone 1,000 MG in SYRINGE 1 EACH IV SCH (19:20)
[2020-05-30] MEDS ORDERED: NOREPINEPHRINE 4 MG/4 ML VIAL IV ONE (19:35)
[2020-05-30 19:41] LABS: ABG Base Excess 3.2 MMOL/L (-2.5-2.5); ABG Oxygen Saturation 83.2 % (95-100); ABG PCO2 36.9 MM HG (35-48); ABG PO2 46.2 MM HG (80-95); ABG TCO2 24.4 MMOL/L (23-27); Allen Test Positive; Pt O2 Delivery Device Ventilator
[2020-05-30 21:36] LABS: ABG Base Excess 0.2 MMOL/L (-2.5-2.5); ABG HCO3 24.6 MMOL/L (20-26); ABG Oxygen Saturation 99.4 % (95-100); ABG PCO2 31.9 MM HG (35-48); ABG PH 7.472 (7.35-7.45); ABG TCO2 21.2 MMOL/L (23-27)
[2020-05-31 04:38] LABS: ABG Base Excess 5.5 MMOL/L (-2.5-2.5); ABG HCO3 29.4 MMOL/L (20-26); ABG Oxygen Saturation 98.5 % (95-100); ABG PCO2 32.3 MM HG (35-48); ABG PH 7.545 (7.35-7.45); ABG TCO2 25.5 MMOL/L (23-27)
[2020-05-31 04:52] LABS: Basophils % 0.1 % (0.0-0.8); Hematocrit 28.8 VOL% (42.0-52.0); Hemoglobin 9.6 GM/DL (14.0-18.0); Immature Granulocytes % 0.5 %; Immature Granulocytes Absolute 0.05 #; Lymphocytes # 0.9 10*3/uL (1.4-4.0); Lymphocytes % 9.6 % (21.2-54.2); Mean Corpuscular HGB Conc 33.3 GM/DL (32-36); Monocytes % 4.8 % (1.7-12.7); Platelet Count 193 T/CUMM (130-400); Red Cell Distribution Width 14.6 % (9.3-17.3); White Blood Count 9.2 T/CUMM (4-12)
[2020-05-31 05:13] LABS: Albumin 2.5 G/DL (3.4-5.0); Bilirubin,Total 0.6 MG/DL (0.2-1.0); Calcium 8.4 MG/DL (8.5-10.1); Total Protein 5.4 G/DL (6.4-8.3)
[2020-05-31] MEDS: ALBUTEROL/IPRATROPIUM 3 ML NEB RESP TX SCH ×4 (07:35→19:25)
[2020-05-31] MEDS: amLODIPine 5 MG TABLET PO SCH (08:56)
[2020-05-31] MEDS: methylPREDNISolone SOD SUC 40 MG/1 ML VIAL IV SCH (08:56)
[2020-05-31] MEDS: ENOXAPARIN 30 MG/0.3 ML SYRINGE SUBCUT SCH (08:56)
[2020-05-31] MEDS: PANTOPRAZOLE 40 MG VIAL IV SCH (09:01)
[2020-05-31] MEDS: DEXTROSE 50% 25 GM/50 ML VIAL IV PRN (11:28)
[2020-05-31] MEDS: INSULIN REGULAR 100 UNIT/ML SUBCUT SCH ×2 (11:32→17:51)
[2020-05-31] MEDS: SODIUM CHLORIDE 0.9% 1,000 ML IV SCH (11:42)
[2020-05-31] MEDS: MIDAZOLAM 100 MG in SODIUM CHLORIDE 0.9% 80 ML IV PRN (12:27)
[2020-05-31] MEDS: AZITHROMYCIN INJ 250 MG in SODIUM CHLORIDE 0.9% 250 ML IV SCH (15:05)
[2020-05-31] MEDS: SODIUM CHLORIDE 3% 4 ML NEB RESP TX SCH ×3 (15:27→19:25)
[2020-05-31] MEDS ORDERED: SODIUM CHLORIDE 3% 4 ML NEB RESP TX SCH (19:00)
[2020-06-01] MEDS: INSULIN REGULAR 100 UNIT/ML SUBCUT SCH ×4 (00:09→17:47)
[2020-06-01] MEDS: ALBUTEROL/IPRATROPIUM 3 ML NEB RESP TX SCH ×5 (00:25→19:50)
[2020-06-01] MEDS: SODIUM CHLORIDE 3% 4 ML NEB RESP TX SCH ×5 (00:25→19:50)
[2020-06-01] MEDS: SODIUM CHLORIDE 0.9% 1,000 ML IV SCH (01:25)
[2020-06-01] MEDS: MIDAZOLAM 100 MG in SODIUM CHLORIDE 0.9% 80 ML IV PRN (02:10)
[2020-06-01 05:38] LABS: ABG Base Excess 3.9 MMOL/L (-2.5-2.5); ABG Oxygen Saturation 99.4 % (95-100); ABG PH 7.517 (7.35-7.45); ABG TCO2 24.7 MMOL/L (23-27)
[2020-06-01 05:42] LABS: Basophils % 0.1 % (0.0-0.8); Hematocrit 25.4 VOL% (42.0-52.0); Hemoglobin 8.7 GM/DL (14.0-18.0); Immature Granulocytes % 0.5 %; Immature Granulocytes Absolute 0.06 #; Lymphocytes # 0.5 10*3/uL (1.4-4.0); Mean Corpuscular HGB Conc 34.3 GM/DL (32-36); Mean Corpuscular Volume 95.8 FL (87-102); Mean Platelet Volume 10.7 FL (9.6-12.0); Monocytes % 2.4 % (1.7-12.7); Platelet Count 155 T/CUMM (130-400); Red Blood Count 2.65 MC/CUMM (3.8-5.5); Red Cell Distribution Width 14.9 % (9.3-17.3); White Blood Count 11.2 T/CUMM (4-12)
[2020-06-01 06:01] LABS: Band Neutrophils 1 % (0-10); Lymphocytes 9 % (20-55); Platelet Estimate Adequate; Segmented Neutrophils 85 % (50-85); Total Cells Counted 100
[2020-06-01 06:02] LABS: Hypochromasia 1+; Microcytosis Slight; Ovalocytes Slight
[2020-06-01 06:08] LABS: Osmolality,Calculated 305.7 MOS/KG (273-304)
[2020-06-01] MEDS: ENOXAPARIN 30 MG/0.3 ML SYRINGE SUBCUT SCH (08:16)
[2020-06-01] MEDS: PANTOPRAZOLE 40 MG VIAL IV SCH (08:16)
[2020-06-01] MEDS: methylPREDNISolone SOD SUC 40 MG/1 ML VIAL IV SCH (08:17)
[2020-06-01] MEDS ORDERED: cefTRIAXone 1,000 MG in SYRINGE 1 EACH IV SCH (09:00)
[2020-06-01] MEDS: ALBUMIN 25% 25 GM in PREMIX 1 EACH IV SCH ×2 (10:04→17:56)
[2020-06-01] MEDS ORDERED: POTASSIUM PHOSPHATE 30 MMOL in SODIUM CHLORIDE 0.9% 250 ML IV ONE (11:00)
[2020-06-01] MEDS: AZITHROMYCIN INJ 250 MG in SODIUM CHLORIDE 0.9% 250 ML IV SCH (11:03)
[2020-06-01] MEDS ORDERED: FUROSEMIDE 40 MG/4 ML VIAL IV ONE (12:00)
[2020-06-02] MEDS: INSULIN REGULAR 100 UNIT/ML SUBCUT SCH ×4 (00:20→17:40)
[2020-06-02] MEDS: ALBUMIN 25% 25 GM in PREMIX 1 EACH IV SCH (01:51)
[2020-06-02 05:10] LABS: Hematocrit 21.7 VOL% (42.0-52.0); Hemoglobin 7.3 GM/DL (14.0-18.0); Immature Granulocytes % 0.7 %; Immature Granulocytes Absolute 0.06 #; Lymphocytes # 0.5 10*3/uL (1.4-4.0); Lymphocytes % 5.7 % (21.2-54.2); Mean Corpuscular HGB Conc 33.6 GM/DL (32-36); Mean Corpuscular Volume 96.4 FL (87-102); Mean Platelet Volume 10.8 FL (9.6-12.0); Monocytes % 3.2 % (1.7-12.7); Neutrophils % 90.4 % (38.7-73.9); Platelet Count 128 T/CUMM (130-400); Red Blood Count 2.25 MC/CUMM (3.8-5.5); Red Cell Distribution Width 15.4 % (9.3-17.3); White Blood Count 9.1 T/CUMM (4-12)
[2020-06-02 05:11] LABS: ABG Base Excess 3.7 MMOL/L (-2.5-2.5); ABG HCO3 26.9 MMOL/L (20-26); ABG Oxygen Saturation 98.5 % (95-100); ABG PCO2 34.2 MM HG (35-48); ABG PH 7.513 (7.35-7.45); ABG PO2 175.2 MM HG (80-95); ABG TCO2 27.9 MMOL/L (23-27)
[2020-06-02 05:40] LABS: Osmolality,Calculated 306.6 MOS/KG (273-304)
[2020-06-02 05:43] LABS: Anisocytosis 1+; Hypochromasia 1+; Microcytosis 1+; Ovalocytes Slight
[2020-06-02 05:44] LABS: Platelet Estimate Decreased; Target Cells Slight
[2020-06-02] MEDS: SODIUM CHLORIDE 3% 4 ML NEB RESP TX SCH ×4 (07:24→19:28)
[2020-06-02] MEDS: ALBUTEROL/IPRATROPIUM 3 ML NEB RESP TX SCH ×4 (07:24→19:28)
[2020-06-02] MEDS: PANTOPRAZOLE 40 MG VIAL IV SCH (08:47)
[2020-06-02] MEDS: ENOXAPARIN 30 MG/0.3 ML SYRINGE SUBCUT SCH (08:47)
[2020-06-02] MEDS: methylPREDNISolone SOD SUC 40 MG/1 ML VIAL IV SCH (08:47)
[2020-06-02] MEDS ORDERED: HEPARIN/NACL 0.9% 2 UNITS/ML 500 ML IV ONE (09:19)
[2020-06-02] MEDS: AZITHROMYCIN INJ 250 MG in SODIUM CHLORIDE 0.9% 250 ML IV SCH (12:39)
[2020-06-03 05:25] LABS: Hematocrit 22.7 VOL% (42.0-52.0); Hemoglobin 7.6 GM/DL (14.0-18.0); Immature Granulocytes % 1.1 %; Immature Granulocytes Absolute 0.12 #; Lymphocytes # 0.5 10*3/uL (1.4-4.0); Lymphocytes % 4.1 % (21.2-54.2); Mean Corpuscular HGB Conc 33.5 GM/DL (32-36); Mean Corpuscular Volume 97.8 FL (87-102); Monocytes % 3.3 % (1.7-12.7); Neutrophils % 91.5 % (38.7-73.9); Platelet Count 141 T/CUMM (130-400); Red Blood Count 2.32 MC/CUMM (3.8-5.5); Red Cell Distribution Width 15.9 % (9.3-17.3); White Blood Count 11.3 T/CUMM (4-12)
[2020-06-03 05:44] LABS: Calcium 8.1 MG/DL (8.5-10.1)
[2020-06-03] MEDS: INSULIN REGULAR 100 UNIT/ML SUBCUT SCH ×4 (06:03→17:41)
[2020-06-03 06:31] LABS: Band Neutrophils 2 % (0-10); Lymphocytes 2 % (20-55); Segmented Neutrophils 92 % (50-85); Total Cells Counted 100
[2020-06-03 06:32] LABS: Anisocytosis 1+; Giant Platelets Few; Macrocytosis 1+; Ovalocytes Few; Platelet Estimate Decreased
[2020-06-03] MEDS: ALBUTEROL/IPRATROPIUM 3 ML NEB RESP TX SCH ×4 (07:27→19:49)
[2020-06-03] MEDS: SODIUM CHLORIDE 3% 4 ML NEB RESP TX SCH ×4 (07:27→19:49)
[2020-06-03] MEDS ORDERED: PHENOL 1.4% THROAT SPRAY 177 ML BOTTLE PO PRN (08:03)
[2020-06-03] MEDS: ENOXAPARIN 30 MG/0.3 ML SYRINGE SUBCUT SCH (09:37)
[2020-06-03] MEDS: PANTOPRAZOLE 40 MG VIAL IV SCH (09:37)
[2020-06-03] MEDS: methylPREDNISolone SOD SUC 40 MG/1 ML VIAL IV SCH (09:38)
[2020-06-03 09:54] LABS: ABG Base Excess 3.3 MMOL/L (-2.5-2.5); ABG HCO3 27.4 MMOL/L (20-26); ABG Oxygen Saturation 99.1 % (95-100); ABG PCO2 41.7 MM HG (35-48); ABG PH 7.433 (7.35-7.45); ABG TCO2 25.9 MMOL/L (23-27)
[2020-06-03] MEDS: AZITHROMYCIN INJ 250 MG in SODIUM CHLORIDE 0.9% 250 ML IV SCH (11:40)
[2020-06-03] MEDS: GABAPENTIN 300 MG CAPSULE PO SCH (20:39)
[2020-06-03] MEDS: DOCUSATE SODIUM 100 MG CAPSULE PO SCH (20:39)
[2020-06-03] MEDS: TEMAZEPAM 7.5 MG CAPSULE PO PRN (21:19)
[2020-06-04] MEDS: INSULIN REGULAR 100 UNIT/ML SUBCUT SCH ×4 (00:26→18:17)
[2020-06-04 03:49] LABS: ABG Base Excess 1.6 MMOL/L (-2.5-2.5); ABG HCO3 25.7 MMOL/L (20-26); ABG Oxygen Saturation 97.5 % (95-100); ABG PCO2 38.3 MM HG (35-48); ABG PH 7.445 (7.35-7.45); ABG PO2 104.8 MM HG (80-95); ABG TCO2 26.9 MMOL/L (23-27)
[2020-06-04 04:12] LABS: Hematocrit 25.4 VOL% (42.0-52.0); Hemoglobin 8.5 GM/DL (14.0-18.0); Immature Granulocytes % 0.7 %; Immature Granulocytes Absolute 0.06 #; Lymphocytes # 0.6 10*3/uL (1.4-4.0); Lymphocytes % 6.2 % (21.2-54.2); Mean Corpuscular HGB Conc 33.5 GM/DL (32-36); Mean Corpuscular Volume 97.3 FL (87-102); Mean Platelet Volume 11.7 FL (9.6-12.0); Monocytes % 3.9 % (1.7-12.7); Neutrophils % 89.2 % (38.7-73.9); Platelet Count 151 T/CUMM (130-400); Red Blood Count 2.61 MC/CUMM (3.8-5.5); Red Cell Distribution Width 15.9 % (9.3-17.3); White Blood Count 8.9 T/CUMM (4-12)
[2020-06-04 04:21] LABS: Calcium 8.5 MG/DL (8.5-10.1); Osmolality,Calculated 295.3 MOS/KG (273-304)
[2020-06-04] MEDS ORDERED: SODIUM POLYSTYRENE SULFATE 15 GM/60 ML BOTTLE PO ONE (07:04)
[2020-06-04] MEDS ORDERED: INSULIN REGULAR 100 UNIT/ML IV ONE (07:04)
[2020-06-04] MEDS ORDERED: SODIUM BICARBONATE 50 MEQ/50 ML VIAL IV ONE (07:05)
[2020-06-04] MEDS ORDERED: DEXTROSE 50% 25 GM/50 ML VIAL IV ONE (07:07)
[2020-06-04] MEDS: SODIUM CHLORIDE 3% 4 ML NEB RESP TX SCH ×4 (07:34→19:13)
[2020-06-04] MEDS: ALBUTEROL/IPRATROPIUM 3 ML NEB RESP TX SCH ×4 (07:34→19:13)
[2020-06-04] MEDS: FUROSEMIDE 40 MG/4 ML VIAL IV SCH (09:40)
[2020-06-04] MEDS: methylPREDNISolone SOD SUC 40 MG/1 ML VIAL IV SCH (09:40)
[2020-06-04] MEDS: PANTOPRAZOLE 40 MG VIAL IV SCH (09:40)
[2020-06-04] MEDS: DOCUSATE SODIUM 100 MG CAPSULE PO SCH ×2 (09:41→21:25)
[2020-06-04] MEDS: ENOXAPARIN 30 MG/0.3 ML SYRINGE SUBCUT SCH (09:41)
[2020-06-04] MEDS: GABAPENTIN 300 MG CAPSULE PO SCH ×2 (09:42→21:25)
[2020-06-04] MEDS: AZITHROMYCIN INJ 250 MG in SODIUM CHLORIDE 0.9% 250 ML IV SCH (12:28)
[2020-06-04] MEDS: TEMAZEPAM 7.5 MG CAPSULE PO PRN (21:25)
[2020-06-05] MEDS: INSULIN REGULAR 100 UNIT/ML SUBCUT SCH ×5 (01:20→20:45)
[2020-06-05 05:04] LABS: Basophils % 0.1 % (0.0-0.8); Hematocrit 26.3 VOL% (42.0-52.0); Hemoglobin 8.6 GM/DL (14.0-18.0); Immature Granulocytes % 0.6 %; Immature Granulocytes Absolute 0.05 #; Lymphocytes # 0.9 10*3/uL (1.4-4.0); Lymphocytes % 11.5 % (21.2-54.2); Mean Corpuscular HGB Conc 32.7 GM/DL (32-36); Mean Corpuscular Volume 98.1 FL (87-102); Mean Platelet Volume 11.4 FL (9.6-12.0); Neutrophils % 81.8 % (38.7-73.9); Platelet Count 142 T/CUMM (130-400); Red Blood Count 2.68 MC/CUMM (3.8-5.5); Red Cell Distribution Width 15.7 % (9.3-17.3); White Blood Count 8.1 T/CUMM (4-12)
[2020-06-05 05:28] LABS: Calcium 8.3 MG/DL (8.5-10.1); Osmolality,Calculated 295.1 MOS/KG (273-304)
[2020-06-05] MEDS: ALBUTEROL/IPRATROPIUM 3 ML NEB RESP TX SCH ×4 (07:18→19:28)
[2020-06-05] MEDS: SODIUM CHLORIDE 3% 4 ML NEB RESP TX SCH ×4 (07:18→19:28)
[2020-06-05] MEDS: PANTOPRAZOLE 40 MG VIAL IV SCH (08:40)
[2020-06-05] MEDS: ENOXAPARIN 30 MG/0.3 ML SYRINGE SUBCUT SCH (08:41)
[2020-06-05] MEDS: methylPREDNISolone SOD SUC 40 MG/1 ML VIAL IV SCH (08:42)
[2020-06-05] MEDS: GABAPENTIN 300 MG CAPSULE PO SCH ×2 (08:43→20:42)
[2020-06-05] MEDS: DOCUSATE SODIUM 100 MG CAPSULE PO SCH ×2 (08:43→20:42)
[2020-06-05] MEDS: FUROSEMIDE 40 MG/4 ML VIAL IV SCH (08:44)
[2020-06-05] MEDS: TEMAZEPAM 7.5 MG CAPSULE PO PRN (23:49)
[2020-06-06 03:34] LABS: Eosinophils % 0.5 % (0.00-10.9); Hematocrit 27.3 VOL% (42.0-52.0); Hemoglobin 8.8 GM/DL (14.0-18.0); Immature Granulocytes % 0.5 %; Immature Granulocytes Absolute 0.04 #; Lymphocytes # 1.4 10*3/uL (1.4-4.0); Lymphocytes % 18.2 % (21.2-54.2); Mean Corpuscular HGB Conc 32.2 GM/DL (32-36); Mean Platelet Volume 10.4 FL (9.6-12.0); Monocytes % 5.8 % (1.7-12.7); Platelet Count 143 T/CUMM (130-400); Red Blood Count 2.73 MC/CUMM (3.8-5.5); Red Cell Distribution Width 15.6 % (9.3-17.3); White Blood Count 7.6 T/CUMM (4-12)
[2020-06-06 04:02] LABS: Calcium 8.3 MG/DL (8.5-10.1)
[2020-06-06] MEDS: ALBUTEROL/IPRATROPIUM 3 ML NEB RESP TX SCH ×4 (07:00→19:28)
[2020-06-06] MEDS: SODIUM CHLORIDE 3% 4 ML NEB RESP TX SCH ×4 (07:00→19:28)
[2020-06-06] MEDS: INSULIN REGULAR 100 UNIT/ML SUBCUT SCH ×4 (08:39→20:37)
[2020-06-06] MEDS: GABAPENTIN 300 MG CAPSULE PO SCH ×2 (09:16→20:37)
[2020-06-06] MEDS: DOCUSATE SODIUM 100 MG CAPSULE PO SCH ×2 (09:16→20:37)
[2020-06-06] MEDS: FUROSEMIDE 40 MG/4 ML VIAL IV SCH (09:16)
[2020-06-06] MEDS: ENOXAPARIN 30 MG/0.3 ML SYRINGE SUBCUT SCH (09:16)
[2020-06-06] MEDS: methylPREDNISolone SOD SUC 40 MG/1 ML VIAL IV SCH (09:17)
[2020-06-06] MEDS: PANTOPRAZOLE 40 MG VIAL IV SCH (09:17)
[2020-06-06] MEDS: TEMAZEPAM 7.5 MG CAPSULE PO PRN (23:12)
[2020-06-07] MEDS: ALBUTEROL/IPRATROPIUM 3 ML NEB RESP TX SCH ×4 (07:10→19:27)
[2020-06-07] MEDS: SODIUM CHLORIDE 3% 4 ML NEB RESP TX SCH ×4 (07:10→19:27)
[2020-06-07] MEDS: DOCUSATE SODIUM 100 MG CAPSULE PO SCH ×2 (09:58→20:57)
[2020-06-07] MEDS: ENOXAPARIN 30 MG/0.3 ML SYRINGE SUBCUT SCH (09:58)
[2020-06-07] MEDS: GABAPENTIN 300 MG CAPSULE PO SCH ×2 (09:58→20:57)
[2020-06-07] MEDS: FUROSEMIDE 40 MG/4 ML VIAL IV SCH (10:01)
[2020-06-07] MEDS: methylPREDNISolone SOD SUC 40 MG/1 ML VIAL IV SCH (10:02)
[2020-06-07] MEDS: PANTOPRAZOLE 40 MG VIAL IV SCH (10:24)
[2020-06-07] MEDS: INSULIN REGULAR 100 UNIT/ML SUBCUT SCH ×5 (10:52→20:55)
[2020-06-07] MEDS ORDERED: TUBERCULIN SKIN TEST 0.1 ML SYRINGE INTRADERM ONE (12:48)
[2020-06-08] MEDS: SODIUM CHLORIDE 3% 4 ML NEB RESP TX SCH ×2 (07:07→10:45)
[2020-06-08] MEDS: ALBUTEROL/IPRATROPIUM 3 ML NEB RESP TX SCH ×2 (07:07→10:45)
[2020-06-08] MEDS: INSULIN REGULAR 100 UNIT/ML SUBCUT SCH ×2 (10:16→12:41)
[2020-06-08] MEDS: DOCUSATE SODIUM 100 MG CAPSULE PO SCH (10:23)
[2020-06-08] MEDS: ENOXAPARIN 30 MG/0.3 ML SYRINGE SUBCUT SCH (10:23)
[2020-06-08] MEDS: FUROSEMIDE 40 MG/4 ML VIAL IV SCH (10:23)
[2020-06-08] MEDS: PANTOPRAZOLE 40 MG VIAL IV SCH (10:24)
[2020-06-08] MEDS: methylPREDNISolone SOD SUC 40 MG/1 ML VIAL IV SCH (10:24)
[2020-06-08] MEDS: GABAPENTIN 300 MG CAPSULE PO SCH (10:24)
[2020-06-08 17:16] VITALS: BP 110/65
== END 2020-06-08 16:15 | disposition swing bed (61) | DRG 335 ==
LOC: N.ED 22:26 → N.EDINP 05-16 02:01 → N.5E 05-16 14:50 → N.ICU 05-17 15:05 → N.3E 05-19 15:31 → N.ICU 05-20 13:53 → N.4E 05-26 13:43 → N.ICU 05-30 16:47 → N.3E 06-05 18:25
PROVIDERS: ADMIT Surgery; ATTEND Student in an Organized Health Care Education/Training Program

== ENCOUNTER 2020-07-11 17:09 | Inpatient (IN) ==
[2020-07-11] MEDS ORDERED: ALBUTEROL/IPRATROPIUM 3 ML NEB RESP TX STA (18:44)
[2020-07-11] MEDS ORDERED: SODIUM CHLORIDE 0.9% 500 ML IV STA (18:44)
[2020-07-11] MEDS ORDERED: ONDANSETRON 4 MG/2 ML VIAL IV STA (18:44)
[2020-07-11] MEDS ORDERED: methylPREDNISolone SOD SUC 125 MG/2 ML VIAL IV STA (18:44)
[2020-07-11 18:56] LABS: Basophils % 0.4 % (0.0-0.8); Eosinophils # 0.3 10*3/uL (0.0-0.87); Eosinophils % 3.8 % (0.00-10.9); Hematocrit 33.5 VOL% (42.0-52.0); Hemoglobin 10.9 GM/DL (14.0-18.0); Immature Granulocytes % 0.3 %; Immature Granulocytes Absolute 0.02 #; Lymphocytes # 2.2 10*3/uL (1.4-4.0); Lymphocytes % 31.4 % (21.2-54.2); Mean Corpuscular HGB Conc 32.5 GM/DL (32-36); Mean Corpuscular Volume 98.8 FL (87-102); Mean Platelet Volume 9.5 FL (9.6-12.0); Monocytes % 13.2 % (1.7-12.7); Neutrophils % 50.9 % (38.7-73.9); Platelet Count 256 T/CUMM (130-400); Red Blood Count 3.39 MC/CUMM (3.8-5.5); Red Cell Distribution Width 14.7 % (9.3-17.3); White Blood Count 6.9 T/CUMM (4-12)
[2020-07-11 19:05] LABS: PT Patient Result 10.9 SECS (9.8-11.9)
[2020-07-11 19:07] LABS: Albumin 2.8 G/DL (3.4-5.0); Bilirubin,Total 0.5 MG/DL (0.2-1.0); Calcium 9.1 MG/DL (8.5-10.1); Osmolality,Calculated 285.8 MOS/KG (273-304); Total Protein 6.8 G/DL (6.4-8.3)
[2020-07-11] MEDS ORDERED: SODIUM BICARBONATE 50 MEQ/50 ML VIAL IV STA (19:21)
[2020-07-11] MEDS ORDERED: ENOXAPARIN 40 MG/0.4 ML SYRINGE SUBCUT STA (19:23)
[2020-07-11] MEDS ORDERED: cefTRIAXone 1,000 MG in SODIUM CHLORIDE 0.9% 100 ML IV STA (19:23)
[2020-07-11 20:18] LABS: Bacteria,Urine Occasional /HPF (Few); Bilirubin,Urine Negative (Negative); Blood, Urine Small mg/dL (Negative); Glucose,Urine (UA) Negative (Negative); Hyaline Casts,Urine 3 /LPF (0-3); Ketones,Urine Negative (Negative); Mucus,Urine Occasional /LPF (Occasional); Nitrite,Urine Negative (Negative); Protein,Urine Negative; RBC,Urine 2 /HPF (0-4); Squamous Epithelial Cell,Urine Occasional /HPF (0-10); Urine Appearance CLEAR (Clear); Urine Color Yellow (Yellow); Urine Specific Gravity 1.006 (1.001-1.035); Urine Urobilinogen < 2.0 EU/DL (0.2-1.0); WBC,Urine 50 /HPF (0-6)
[2020-07-11] MEDS ORDERED: SODIUM CHLORIDE 0.9% 1,000 ML IV SCH (22:03)
[2020-07-11] MEDS ORDERED: GLUCAGON 1 MG VIAL IM PRN (22:03)
[2020-07-11] MEDS ORDERED: ONDANSETRON 4 MG/2 ML VIAL IV PRN (22:03)
[2020-07-11] MEDS ORDERED: ALBUTEROL/IPRATROPIUM 3 ML NEB RESP TX PRN (22:03)
[2020-07-11] MEDS ORDERED: MORPHINE 4 MG/1 ML VIAL IV PRN (22:03)
[2020-07-11] MEDS ORDERED: ALBUTEROL 2.5 MG/3 ML NEB RESP TX PRN (22:03)
[2020-07-11] MEDS ORDERED: POLYVINYL ALCOHOL 1.4% OPH SOLN 15 ML BOTTLE BOTH EYES PRN (22:03)
[2020-07-11] MEDS ORDERED: ACETAMINOPHEN 325 MG TABLET PO PRN (22:03)
[2020-07-11] MEDS ORDERED: DEXTROSE 50% 25 GM/50 ML VIAL IV PRN (22:03)
[2020-07-11 23:28] LABS: Troponin I < 0.015 NG/ML (0.00-0.045)
[2020-07-11] MEDS: GABAPENTIN 300 MG CAPSULE PO SCH (23:52)
[2020-07-11] MEDS: ISOSORBIDE MONONITRATE 30 MG TABLET PO SCH (23:52)
[2020-07-11] MEDS: SIMVASTATIN 20 MG TABLET PO SCH (23:52)
[2020-07-12] MEDS: DOCUSATE SODIUM 100 MG CAPSULE PO SCH ×3 (00:30→20:43)
[2020-07-12] MEDS: ENOXAPARIN 30 MG/0.3 ML SYRINGE SUBCUT SCH ×2 (00:31→20:43)
[2020-07-12] MEDS: INSULIN REGULAR 100 UNIT/ML SUBCUT SCH ×4 (00:33→18:10)
[2020-07-12] MEDS: LEVOTHYROXINE 150 MCG TABLET PO SCH (05:28)
[2020-07-12] MEDS: methylPREDNISolone SOD SUC 40 MG/1 ML VIAL IV SCH ×3 (05:28→21:38)
[2020-07-12 05:41] LABS: Basophils % 0.2 % (0.0-0.8); Hematocrit 29.9 VOL% (42.0-52.0); Hemoglobin 9.8 GM/DL (14.0-18.0); Immature Granulocytes % 0.7 %; Immature Granulocytes Absolute 0.03 #; Lymphocytes # 0.9 10*3/uL (1.4-4.0); Lymphocytes % 21.8 % (21.2-54.2); Mean Corpuscular HGB Conc 32.8 GM/DL (32-36); Mean Corpuscular Volume 97.7 FL (87-102); Mean Platelet Volume 9.1 FL (9.6-12.0); Monocytes % 3.1 % (1.7-12.7); Neutrophils % 74.2 % (38.7-73.9); Platelet Count 233 T/CUMM (130-400); Red Blood Count 3.06 MC/CUMM (3.8-5.5); Red Cell Distribution Width 14.7 % (9.3-17.3); White Blood Count 4.2 T/CUMM (4-12)
[2020-07-12 06:26] LABS: Albumin 2.4 G/DL (3.4-5.0); Bilirubin,Total 0.7 MG/DL (0.2-1.0); Calcium 9.1 MG/DL (8.5-10.1); Risk Ratio 2.92; Total Protein 6.7 G/DL (6.4-8.3); VLDL CHOLESTEROL 16.8 MG/DL
[2020-07-12] MEDS: ARFORMOTEROL 15 MCG/2 ML NEB RESP TX SCH ×3 (06:53→18:44)
[2020-07-12] MEDS: IPRATROPIUM 500 MCG/2.5 ML NEB RESP TX SCH ×4 (06:53→18:44)
[2020-07-12] MEDS ORDERED: ENOXAPARIN 60 MG/0.6 ML SYRINGE SUBCUT ONE (08:05)
[2020-07-12] MEDS ORDERED: FUROSEMIDE 40 MG TABLET PO SCH (09:00)
[2020-07-12] MEDS: POTASSIUM CHLORIDE 20 MEQ PACK PO SCH (09:12)
[2020-07-12] MEDS: PANTOPRAZOLE 40 MG TABLET PO SCH (09:13)
[2020-07-12] MEDS: ASPIRIN EC 81 MG TABLET PO SCH (09:13)
[2020-07-12] MEDS: FOLIC ACID 0.4 MG TABLET PO SCH (09:13)
[2020-07-12] MEDS: GABAPENTIN 300 MG CAPSULE PO SCH ×2 (09:13→20:43)
[2020-07-12] MEDS: MONTELUKAST 10 MG TABLET PO SCH (09:13)
[2020-07-12] MEDS: SODIUM CHLORIDE 0.9% 1,000 ML IV SCH ×2 (09:16→18:09)
[2020-07-12] MEDS: cefTRIAXone 1,000 MG in SYRINGE 1 EACH IV SCH (16:10)
[2020-07-12] MEDS: ISOSORBIDE MONONITRATE 30 MG TABLET PO SCH (20:43)
[2020-07-12] MEDS: SIMVASTATIN 20 MG TABLET PO SCH (20:43)
[2020-07-13] MEDS: INSULIN REGULAR 100 UNIT/ML SUBCUT SCH ×4 (00:44→18:42)
[2020-07-13] MEDS: SODIUM CHLORIDE 0.9% 1,000 ML IV SCH ×2 (05:24→18:23)
[2020-07-13] MEDS: methylPREDNISolone SOD SUC 40 MG/1 ML VIAL IV SCH ×3 (05:25→22:18)
[2020-07-13] MEDS: LEVOTHYROXINE 150 MCG TABLET PO SCH (05:32)
[2020-07-13 05:38] LABS: Basophils % 0.1 % (0.0-0.8); Hematocrit 25.8 VOL% (42.0-52.0); Hemoglobin 8.4 GM/DL (14.0-18.0); Immature Granulocytes % 0.4 %; Immature Granulocytes Absolute 0.03 #; Lymphocytes % 14.9 % (21.2-54.2); Mean Corpuscular HGB Conc 32.6 GM/DL (32-36); Mean Corpuscular Volume 100.8 FL (87-102); Mean Platelet Volume 9.4 FL (9.6-12.0); Neutrophils % 76.6 % (38.7-73.9); Platelet Count 206 T/CUMM (130-400); Red Blood Count 2.56 MC/CUMM (3.8-5.5); Red Cell Distribution Width 14.7 % (9.3-17.3); White Blood Count 6.8 T/CUMM (4-12)
[2020-07-13 06:20] LABS: Calcium 8.4 MG/DL (8.5-10.1); Calcium 8.5 MG/DL (8.5-10.1); Osmolality,Calculated 290.7 MOS/KG (273-304); Osmolality,Calculated 294.4 MOS/KG (273-304)
[2020-07-13] MEDS: IPRATROPIUM 500 MCG/2.5 ML NEB RESP TX SCH ×4 (07:10→19:41)
[2020-07-13] MEDS: ARFORMOTEROL 15 MCG/2 ML NEB RESP TX SCH ×2 (07:10→19:41)
[2020-07-13] MEDS: GABAPENTIN 300 MG CAPSULE PO SCH ×2 (08:58→20:46)
[2020-07-13] MEDS: DOCUSATE SODIUM 100 MG CAPSULE PO SCH ×2 (08:58→20:46)
[2020-07-13] MEDS: FOLIC ACID 0.4 MG TABLET PO SCH (08:58)
[2020-07-13] MEDS: POTASSIUM CHLORIDE 20 MEQ PACK PO SCH (08:58)
[2020-07-13] MEDS: MONTELUKAST 10 MG TABLET PO SCH (08:58)
[2020-07-13] MEDS: ASPIRIN EC 81 MG TABLET PO SCH (08:58)
[2020-07-13] MEDS: PANTOPRAZOLE 40 MG TABLET PO SCH (08:58)
[2020-07-13] MEDS: CHOLECALCIFEROL 1,000 UNIT TABLET PO SCH (11:03)
[2020-07-13] MEDS ORDERED: SKIN HEALING OINT (AQUAPHOR) 50 GM TUBE TOP PRN (13:59)
[2020-07-13] MEDS: cefTRIAXone 1,000 MG in SYRINGE 1 EACH IV SCH (18:14)
[2020-07-13] MEDS: ISOSORBIDE MONONITRATE 30 MG TABLET PO SCH (20:45)
[2020-07-13] MEDS: SIMVASTATIN 20 MG TABLET PO SCH (20:46)
[2020-07-13] MEDS: ENOXAPARIN 30 MG/0.3 ML SYRINGE SUBCUT SCH (20:46)
[2020-07-14] MEDS: SODIUM CHLORIDE 0.9% 1,000 ML IV SCH (00:41)
[2020-07-14] MEDS: INSULIN REGULAR 100 UNIT/ML SUBCUT SCH ×3 (01:35→12:20)
[2020-07-14] MEDS: methylPREDNISolone SOD SUC 40 MG/1 ML VIAL IV SCH (05:33)
[2020-07-14] MEDS: LEVOTHYROXINE 150 MCG TABLET PO SCH (05:34)
[2020-07-14 05:47] LABS: Hematocrit 26.6 VOL% (42.0-52.0); Hemoglobin 8.6 GM/DL (14.0-18.0); Immature Granulocytes % 1.1 %; Immature Granulocytes Absolute 0.08 #; Lymphocytes # 0.8 10*3/uL (1.4-4.0); Lymphocytes % 11.8 % (21.2-54.2); Mean Corpuscular HGB Conc 32.3 GM/DL (32-36); Mean Corpuscular Volume 101.1 FL (87-102); Mean Platelet Volume 9.2 FL (9.6-12.0); Monocytes % 6.7 % (1.7-12.7); Neutrophils % 80.4 % (38.7-73.9); Platelet Count 198 T/CUMM (130-400); Red Blood Count 2.63 MC/CUMM (3.8-5.5); Red Cell Distribution Width 15.1 % (9.3-17.3); White Blood Count 7.1 T/CUMM (4-12)
[2020-07-14 06:23] LABS: Calcium 8.2 MG/DL (8.5-10.1); Osmolality,Calculated 292.3 MOS/KG (273-304)
[2020-07-14 07:01] LABS: Hematocrit 27.2 VOL% (42.0-52.0); Hemoglobin 8.8 GM/DL (14.0-18.0); Immature Granulocytes % 0.4 %; Immature Granulocytes Absolute 0.03 #; Lymphocytes # 0.9 10*3/uL (1.4-4.0); Lymphocytes % 13.2 % (21.2-54.2); Mean Corpuscular HGB Conc 32.4 GM/DL (32-36); Mean Corpuscular Volume 101.1 FL (87-102); Mean Platelet Volume 9.2 FL (9.6-12.0); Monocytes % 7.8 % (1.7-12.7); Neutrophils % 78.6 % (38.7-73.9); Platelet Count 197 T/CUMM (130-400); Red Blood Count 2.69 MC/CUMM (3.8-5.5); Red Cell Distribution Width 15.2 % (9.3-17.3); White Blood Count 6.7 T/CUMM (4-12)
[2020-07-14] MEDS: ARFORMOTEROL 15 MCG/2 ML NEB RESP TX SCH (07:02)
[2020-07-14] MEDS: IPRATROPIUM 500 MCG/2.5 ML NEB RESP TX SCH ×3 (07:02→16:37)
[2020-07-14] MEDS: CHOLECALCIFEROL 1,000 UNIT TABLET PO SCH (10:30)
[2020-07-14] MEDS: DOCUSATE SODIUM 100 MG CAPSULE PO SCH (10:30)
[2020-07-14] MEDS: PANTOPRAZOLE 40 MG TABLET PO SCH (10:30)
[2020-07-14] MEDS: MONTELUKAST 10 MG TABLET PO SCH (10:30)
[2020-07-14] MEDS: GABAPENTIN 300 MG CAPSULE PO SCH (10:30)
[2020-07-14] MEDS: FOLIC ACID 0.4 MG TABLET PO SCH (10:31)
[2020-07-14] MEDS: POTASSIUM CHLORIDE 20 MEQ PACK PO SCH (10:31)
[2020-07-14] MEDS: ASPIRIN EC 81 MG TABLET PO SCH (10:31)
[2020-07-14 11:45] VITALS: BP 132/68
[2020-07-15] MEDS ORDERED: predniSONE 20 MG TABLET PO SCH (09:00)
[2020-07-15] MEDS ORDERED: CYANOCOBALAMIN 1000 MCG/1 ML VIAL IM SCH (09:00)
[2020-07-17] MEDS ORDERED: SEMAGLUTIDE SUBCUT SCH (09:00)
[2020-07-17] MEDS ORDERED: [UNRECOGNIZED DRUG - OTHER] SUBCUT SCH (09:00)
== END 2020-07-14 15:37 | DRG 191 ==
LOC: EDBD → EDUNIT# → N.TELEN 17:09 → N.ED 17:09 → N.TELEN 22:29
PROVIDERS: ADMIT Family Medicine; ATTEND Family Medicine

== ENCOUNTER 2020-07-15 06:29 | Inpatient (IN) ==
[2020-07-15] MEDS ORDERED: FUROSEMIDE 40 MG/4 ML VIAL IV STA (06:46)
[2020-07-15] MEDS ORDERED: PIPERACILLIN/TAZOBACTAM 3,375 MG in SODIUM CHLORIDE 0.9% 100 ML IV STA (06:56)
[2020-07-15] MEDS ORDERED: ALBUTEROL 2.5 MG/3 ML NEB RESP TX STA (06:57)
[2020-07-15 07:08] LABS: ABG Base Excess 1.8 MMOL/L (-2.5-2.5); ABG HCO3 25.5 MMOL/L (20-26); ABG Oxygen Saturation 69.9 % (95-100); ABG PCO2 44.3 MM HG (35-48); ABG TCO2 24.4 MMOL/L (23-27)
[2020-07-15 07:29] LABS: Albumin 2.8 G/DL (3.4-5.0); Bilirubin,Total 0.6 MG/DL (0.2-1.0); Calcium 9.3 MG/DL (8.5-10.1); Osmolality,Calculated 289.3 MOS/KG (273-304); Total Protein 6.7 G/DL (6.4-8.3)
[2020-07-15 07:40] LABS: Bacteria,Urine Occasional /HPF (Few); Bilirubin,Urine Negative (Negative); Blood, Urine Negative (Negative); Glucose,Urine (UA) Negative (Negative); Hyaline Casts,Urine 3 /LPF (0-3); Ketones,Urine Negative (Negative); Mucus,Urine Occasional /LPF (Occasional); Nitrite,Urine Negative (Negative); Protein,Urine 30 MG/DL; RBC,Urine 1 /HPF (0-4); Squamous Epithelial Cell,Urine Occasional /HPF (0-10); Urine Appearance CLEAR (Clear); Urine Color Yellow (Yellow); Urine Urobilinogen < 2.0 EU/DL (0.2-1.0); WBC,Urine 18 /HPF (0-6)
[2020-07-15] MEDS ORDERED: SODIUM CHLORIDE 0.9% 500 ML IV STA (08:03)
[2020-07-15 08:19] LABS: Basophils % 0.1 % (0.0-0.8); Eosinophils % 0.5 % (0.00-10.9); Immature Granulocytes % 0.3 %; Immature Granulocytes Absolute 0.03 #; Lymphocytes # 1.1 10*3/uL (1.4-4.0); Lymphocytes % 12.3 % (21.2-54.2); Mean Corpuscular HGB Conc 31.6 GM/DL (32-36); Mean Corpuscular Volume 101.9 FL (87-102); Mean Platelet Volume 9.4 FL (9.6-12.0); Monocytes % 4.4 % (1.7-12.7); Neutrophils % 82.4 % (38.7-73.9); Platelet Count 258 T/CUMM (130-400); Red Blood Count 3.63 MC/CUMM (3.8-5.5); Red Cell Distribution Width 15.3 % (9.3-17.3); White Blood Count 8.8 T/CUMM (4-12)
[2020-07-15 08:23] LABS: Hemoglobin 11.7 GM/DL (14.0-18.0)
[2020-07-15] MEDS ORDERED: MAGNESIUM SULF RIDER 2 GM in PREMIX 1 EACH IV PRN (09:28)
[2020-07-15] MEDS ORDERED: MAGNESIUM SULF RIDER 4 GM in PREMIX 1 EACH IV PRN (09:28)
[2020-07-15] MEDS ORDERED: ONDANSETRON 4 MG/2 ML VIAL IV PRN (09:28)
[2020-07-15] MEDS ORDERED: ENOXAPARIN 30 MG/0.3 ML SYRINGE SUBCUT SCH (09:30)
[2020-07-15] MEDS ORDERED: NITROGLYCERIN SL 0.4 MG TABLET SL PRN (09:32)
[2020-07-15] MEDS ORDERED: POLYVINYL ALCOHOL 1.4% OPH SOLN 15 ML BOTTLE BOTH EYES PRN (09:33)
[2020-07-15 09:34] LABS: Band Neutrophils 6 % (0-10); Eosinophils 4 % (0-10); Total Cells Counted 100
[2020-07-15 09:35] LABS: Anisocytosis 1+; Lymphocytes 11 % (20-55); Macrocytosis 1+; Ovalocytes Few; Platelet Estimate Normal; Segmented Neutrophils 72 % (50-85)
[2020-07-15] MEDS ORDERED: SODIUM CHLORIDE 0.9% 250 ML IV STA (09:39)
[2020-07-15] MEDS ORDERED: PIPERACILLIN/TAZOBACTAM 3,375 MG in SODIUM CHLORIDE 0.9% 100 ML IV SCH (10:00)
[2020-07-15] MEDS ORDERED: DEXAMETHASONE 4 MG/1 ML VIAL IV STA (10:04)
[2020-07-15] MEDS ORDERED: LORazepam 2 MG/1 ML VIAL ONE (11:19)
[2020-07-15] MEDS ORDERED: SODIUM PHOSPHATE ENEMA 133 ML BOTTLE RECTAL ONE (13:07)
[2020-07-15] MEDS: ALBUTEROL/IPRATROPIUM 3 ML NEB RESP TX SCH ×2 (13:35→19:11)
[2020-07-15] MEDS: SODIUM CHLORIDE 0.9% 1,000 ML IV SCH (16:48)
[2020-07-15] MEDS: MORPHINE 4 MG/1 ML VIAL IV PRN (17:20)
[2020-07-15] MEDS: ARFORMOTEROL 15 MCG/2 ML NEB RESP TX SCH (19:11)
[2020-07-15] MEDS ORDERED: ISOSORBIDE MONONITRATE 30 MG TABLET PO SCH (21:00)
[2020-07-15] MEDS ORDERED: GABAPENTIN 300 MG CAPSULE PO SCH (21:00)
[2020-07-16] MEDS: ALBUTEROL/IPRATROPIUM 3 ML NEB RESP TX SCH ×2 (01:36→07:31)
[2020-07-16] MEDS: SODIUM CHLORIDE 0.9% 1,000 ML IV SCH (02:48)
[2020-07-16 06:33] LABS: ABG PH 7.394 (7.35-7.45); ABG PO2 40.7 MM HG (80-95)
[2020-07-16] MEDS ORDERED: IPRATROPIUM 500 MCG/2.5 ML NEB RESP TX SCH (07:00)
[2020-07-16] MEDS ORDERED: LEVOTHYROXINE 150 MCG TABLET PO SCH (07:30)
[2020-07-16] MEDS: ARFORMOTEROL 15 MCG/2 ML NEB RESP TX SCH (07:31)
[2020-07-16] MEDS ORDERED: predniSONE 10 MG TABLET PO SCH (09:00)
[2020-07-16] MEDS ORDERED: ASPIRIN EC 81 MG TABLET PO SCH (09:00)
[2020-07-16] MEDS ORDERED: CHOLECALCIFEROL 1,000 UNIT TABLET PO SCH (09:00)
[2020-07-16] MEDS ORDERED: FOLIC ACID 0.4 MG TABLET PO SCH (09:00)
[2020-07-16] MEDS ORDERED: FUROSEMIDE 40 MG TABLET PO SCH (09:00)
[2020-07-16] MEDS ORDERED: MONTELUKAST 10 MG TABLET PO SCH (09:00)
[2020-07-16] MEDS ORDERED: GABAPENTIN 300 MG CAPSULE PO SCH (09:00)
[2020-07-16] MEDS: LORazepam 2 MG/1 ML VIAL IV PRN ×3 (10:34→22:08)
[2020-07-16 23:05] VITALS: BP 127/68
[2020-07-17] MEDS: MORPHINE 4 MG/1 ML VIAL IV PRN (03:10)
[2020-07-17] MEDS: LORazepam 2 MG/1 ML VIAL IV PRN (03:16)
[2020-07-17] MEDS ORDERED: Semaglutide [Ozempic] 0.25 mg or 0.5 mg(2 mg/1.5 mL) Pen Injecto SUBCUT SCH (09:33)
[2020-07-18] MEDS ORDERED: CYANOCOBALAMIN 1000 MCG/1 ML VIAL IM SCH (10:00)
== END 2020-07-17 10:43 | disposition expired | DRG 871 ==
LOC: EDUNIT# → EDBD → N.ED 06:29 → N.EDINP 09:28 → N.TELES 10:19 → N.4E 07-16 17:38
PROVIDERS: ADMIT Family Medicine; ATTEND Family Medicine